=== PATIENT | female | born 1970 | race Two or more races ===

== ENCOUNTER 2020-04-26 16:45 | Emergency (ER) | payer OTHER, SELFPAY ==
[2020-04-26 17:09] VITALS: BP 141/81; PULSE 73; RESP 18; TEMP 37.4; O2SAT 98; BMI 32.9
--- NOTE | 2020-04-26 19:12 | XR_ITS ---
EXAMINATION: XR CHEST CLINICAL INFORMATION: Cough COMPARISON: Chest x-ray 04/30/2019 TECHNIQUE: 2 views of the chest were obtained. FINDINGS: Cardiac silhouette is normal in size. The lungs are well aerated. There is no lobar consolidation. No pleural effusion or pneumothorax. No acute osseous abnormality. IMPRESSION: Stable examination demonstrating no acute pulmonary pathology.
[2020-04-26] MEDS: predniSONE 20 MG TABLET 60 MG PO (19:30)
[2020-04-26] MEDS: Albuterol/Iprat 2.5/0.5MG 3 ML AMPUL.NEB INHALE (19:35)
[2020-04-26 20:42] VITALS: BP 143/77; PULSE 80; RESP 16; TEMP 37.1; O2SAT 100
--- NOTE | 2020-04-26 21:08 | ED_ITS ---
HPI - URI/Sore Throat General Chief Complaint: Upper Respiratory Symptoms Stated Complaint: flu like symptoms, negative covid test Time Seen by Provider: 04/26/20 19:12 Source: patient Mode of arrival: ambulatory Limitations: no limitations History of Present Illness HPI Narrative: Patient presents to ED for 2 weeks of runny nose, coughing, facial pain, and chest pain only when she coughs. Patient denies any chest pain on inspiration. Patient was recently swab this past Saturday for COVID test and was negative. but patient states she swab herself and did not go all the upper nose. Patient wants to get retested for COVID-19. Related Data Home Medications Medication Instructions Recorded Confirmed albuterol sulfate 90 mcg/actuation 2 puff INHALATION Q6H PRN 04/20/20 aerosol inhaler albuterol sulfate 90 mcg/actuation 2 puff INHALATION Q6H PRN 04/20/20 aerosol inhaler ascorbic acid (vitamin C) 500 mg 500 mg PO DAILY 04/20/20 tablet budesonide-formoterol HFA 80 2 puff INHALATION BID 04/20/20 mcg-4.5 mcg/actuation aerosol inhaler cholecalciferol (vitamin D3) 50 50 mcg PO DAILY 04/20/20 mcg (2,000 unit) capsule levothyroxine 137 mcg tablet 137 mcg PO DAILY 04/20/20 montelukast 10 mg tablet 10 mg PO DAILY 04/20/20 Previous Rx's Medication Instructions Recorded dextromethorphan-guaifenesin 10 10 ml PO Q4-6H PRN 15 Days #237 ml 04/20/20 mg-100 mg/5 mL oral syrup azithromycin 250 mg tablet See Rx Instructions PO .COMPLEX #6 04/22/20 tab benzonatate [Tessalon Perles] 100 mg PO TID #15 cap 04/26/20 prednisone 40 mg PO DAILY #10 tab 04/26/20 Allergies Allergy/AdvReac Type Severity Reaction Status Date / Time peanut [PEANUT] Allergy Unknown SWELLING Verified 04/26/20 17:09 Review of Systems Review of Systems: Patient admits to fever, chills, runny nose, facial pain, cough pain, chest pain when she cough, fever, and night sweats. Patient denies any swelling of lower extremities, calf pain, chest pain on inspiration, coughing up blood, headache, dizziness, abdominal pain, diarrhea, nausea, vomiting, rash, weakness, blurry vision, dysuria, or hematuria. Yes all other systems are reviewed and are negative [facility] Past Medical History Medical History (Updated 04/26/20 @ 21:16 by HAILEY Solorio) Arthritis Asthma Fibromyalgia Sinusitis Social History Social History Alcohol intake: never Smoked in Last 30 Days: No Use of substances other than those prescribed or required for medical reasons: No Advance Directives: No Advance Directives Information Provided: No Physical Exam Vital Signs: Vital Signs: Vital Signs Temp Pulse Resp BP Pulse Ox 04/26/20 20:42 98.7 F 80 16 143/77 H 100 04/26/20 17:09 99.3 F 73 18 141/81 H 98 Body Mass Index 32.9 Const: General: cooperative, healthy appearing, comfortable, no acute distress, well developed, alert and awake Orientation/consciousness: oriented to person, oriented to place, oriented to time and patient oriented x3 HENMT: Head: Yes normal to inspection Ears: hearing grossly normal bilaterally General nose exam: Normal external nose present Face and sinus: Yes normal facial exam Mouth: Normal oral and palatal mucosa present Throat: Yes posterior oropharynx normal, Yes tonsils normal and Yes uvula midline Eyes: General: appearance normal, both eyes and all related structures Neck: Neck: Yes normal visual inspection, Yes full ROM, Yes no lymphade nopathy, Yes no meningeal signs, No lymphadenopathy, No positive Brudzinski's sign and No positive Kernig's sign Chest: Chest palpation & inspection: normal inspection of the chest and normal palpation of entire chest wall Resp: Effort & Inspection: normal respiratory effort, able to speak in complete sentences, normal respiratory pattern, no audible wheezes and no cough Auscultation: wheezes expiratory wheezes Cardio: Jugular venous distension: no JVD Heart sounds: S1 normal heart s ound present and S2 normal heart sound present GI: Inspection: Yes normal to inspection, No abdominal wall ecchymosis, No Abdominal wall edema, No distended, No incision and No Abdominal panniculus pres ent Palpation (GI): Soft to palpation, not firm, nontender, no guarding and not rigid : General: No CVA tenderness and Yes no CVA tenderness Back/Spine/Pelvis: Back: no CVA tenderness, No CVA tenderness and No back tenderness Skin: General skin exam: no rashes or lesions noted Neuro: General: oriented to person, oriented to place, oriented to time, patient oriented x3, gait normal, no meningeal signs and CN's II-XI intact bilaterally Cranial nerves: Yes CN's II-XII intact bilaterally Extrem: Other: Lower extremities negative for any swelling, calf tenderness, redness, or pitting edema. General: Yes normal to inspection Psych: Appearance: grossly normal, well kempt and not disheveled Course Course Course Narrative: History physical exam indicate URI. Patient will have chest x-ray done. Lungs with wheezing indicate asthma exacerbation. Reevaluation(s) Reevaluation #1: Patient's x-ray came back normal. Patient wheezing improved. Patient will be discharged with steroids. Patient has albuterol inhaler at home. Patient will be discharged with Tessalon Perles. Patient is swabbed for COVID-19. Patient educated on self-isolation Time: 21:14 MDM - URI/Sore Throat MDM Narrative Medical decision making narrative: asthma exacerbation due to viral syndrome. Patient's vital signs are stable Discharge Plan Discharge Clinical Impression: Upper respiratory infection, Asthma Patient Disposition: Home, Self-Care Instructions: Asthma (ED), Upper Respiratory Infection (ED) Additional Instructions: Return to the ED for coughing up blood, swelling of lower extremities, calf pain, chest pain on inspiration, intractable fever, chills, weakness, or any other concerning symptoms. Prescriptions: New prednisone 20 mg tablet 40 mg PO DAILY Qty: 10 RF: 0 benzonatate [Tessalon Perles] 100 mg capsule 100 mg PO TID Qty: 15 RF: 0 No Action montelukast 10 mg tablet 10 mg PO DAILY RF: 0 levothyroxine 137 mcg tablet 137 mcg PO DAILY RF: 0 cholecalciferol (vitamin D3) 50 mcg (2,000 unit) capsule 50 mcg PO DAILY RF: 0 ascorbic acid (vitamin C) 500 mg tablet 500 mg PO DAILY RF: 0 albuterol sulfate 90 mcg/actuation HFA aerosol inhaler 2 puff inhalation Q6H PRNRF: 0 albuterol sulfate [Ventolin HFA] 90 mcg/actuation HFA aerosol inhaler 2 puff inhalation Q6H PRNRF: 0 budesonide-formoterol 80-4.5 mcg/actuation HFA aerosol inhaler 2 puff inhalation BID RF: 0 dextromethorphan-guaifenesin [Robafen DM Cough-Chest Congest] 10-100 mg/5 mL syrup 10 ml PO Q4-6H PRN (Reason: cough) 15 Days Qty: 237 RF: 0 azithromycin 250 mg tablet See Rx Instructions PO .COMPLEX Qty: 6 RF: 0 Referrals: Justin Morales MD [Primary Care Provider] - 2 days ( URI induced asthma exacerbation. Patient retested for the COVID-19 virus. X-ray negative for pneumonia.) Stand Alone Forms: Work/School Release Interventions: ED Discharge Assessment Last Done: 04/26/20 21:25 Discharge Date/Time: 04/26/20 21:29
--- NOTE | 2020-04-26 21:28 | PC.NURSE ---
PT REQUEST TO BE RETESTED FOR COVID. PT BELEIVES THE TEST SHE TOOK COULD BE FAULTY BECAUSE THEY MADE HER DO IT.
== END 2020-04-26 21:29 | disposition home or self-care (01) ==
PROVIDERS: Physician Assistant; Emergency Provider Emergency Medicine Emergency Medical Services; PCP Internal Medicine
DX: J06.9 Acute upper respiratory infection, unspecified (principal); Z20.828 Contact with and (suspected) exposure to other viral communicable diseases; J45.909 Unspecified asthma, uncomplicated; Z79.899 Other long term (current) drug therapy
CPT/HCPCS: 71046; 87635; 99284

== ENCOUNTER → 2020-05-04 07:32 | Outpatient (REF) | payer OTHER, SELFPAY ==
--- NOTE | 2020-05-04 | NM_ITS ---
EXERCISE MYOCARDIAL PERFUSION STUDY INDICATION: Chest pain TECHNIQUE: The patient was brought in for an exercise perfusion study on 05/04/2020. Patient performed exercise as per Manan protocol and was injected 30 mCi of sestamibi once target heart rate was achieved. Images were obtained using the SPECT gamma camera interlaced with the gating device. Images were obtained in supine position. Resting perfusion study was performed on 05/05/2020. Patient was administered 30 mCi of sestamibi intravenously at rest. Images were then obtained in supine position. Total DLP 82mGy-cm. Images were processed with the software and compared side to side in short axis, horizontal long axis and vertical long axis views. FINDINGS: Raw images were reviewed. The stress perfusion study showed mildly diminished tracer uptake in the distal part of anterolateral wall. With CT attenuation correction, this improves significantly suggestive of soft tissue attenuation artifact. The gated study shows normal LV systolic function with calculated LVEF of 72%. LV cavity is normal in size. The gated study shows normal wall thickening and contraction of segments. Resting study shows mildly diminished tracer uptake along the anterior wall which improves with CT attenuation correction and hence suggesting soft tissue artifact. Gating at rest reveals normal wall motion with ejection fraction at 71%. The findings are consistent with no definite reversible or fixed perfusion defects. NM/NM david perf SPECT rest & str IMPRESSION: 1. Myocardial perfusion imaging study shows likely normal myocardial perfusion. No definitive evidence of any ischemia or infarction. 2. Gated LVEF is > 70%. 3. Transient ischemic dilatation not present. EKG component of the test reported separately.
--- NOTE | 2020-05-04 07:46 | CA_ITS ---
Acquisition Time: 2020-05-04 08:08:34 Total Exercise Time: 00:06:00 Test Indications: Chest Pain Medications: LEVOTHYROXINE MONTELUKEST ALBUTEROL Protocol: VERONIKA Max HR: 146 BPM 85% of Pred: 170 BPM Max BP: 172/087 mmHG Max Work Load: 7.0 METS Exercise nuclear test using veronika protocol total of 6 min. Tolerated well. METS 7.0. Pt has Chest pain around her L rib and center of her chest. She's just getting over a sinus infection. Tested neg for COVID. Chest pressure increased during exercise, resolving in recovery period. EKG with occ PVC's during exercise. No ischemic changes. Nuclear images to follow. Normotensive response to exercise. Test reviewed with Dr. Kaplan. Referred By: Slava Esposito Overread By: Pierre Sesay
[2020-05-04 08:36] LABS: Basophils Percent Auto 0.4 % (0-2); Eosinophils Absolute Auto 0.2 X10*3/uL (0.0-0.4); Eosinophils Percent Auto 2.8 % (0-4); Hematocrit 42.1 % (37-47); Hemoglobin 13.6 g/dl (12.0-16.0); Imm Gran Abs Auto 0.02 X10*3/uL (0.00-0.03); Imm Gran Pct Auto 0.3 % (0.0-0.4); Lymphocytes Percent Auto 26.8 % (20-40); MANUAL DIFF FLAG NO; Mean Corpuscular HGB Conc 32.3 g/dl (31.0-35.0); Mean Corpuscular Hemoglobin 29.3 pg (27.0-33.0); Mean Corpuscular Volume 90.7 fL (80-98); Mean Platelet Volume 10.3 fL (9.4-12.3); Monocytes Absolute Auto 0.7 X10*3/uL (0.1-1.2); Monocytes Percent Auto 9.1 % (2-11); Neutrophils Absolute Auto 4.5 X10*3/uL (2.0-8.3); Neutrophils Percent Auto 60.6 % (45-73); Platelet Count 260 X10*3/uL (160-400); Red Blood Count 4.64 X10*6/uL (4.20-5.50); Red Cell Distribution Width 13.9 % (11.0-16.0); White Blood Count 7.4 X10*3/uL (4.8-10.8)
[2020-05-04 09:04] LABS: Alanine Aminotransferase 13 U/L (0-31); Albumin Level 4.1 g/dL (3.5-5.0); Alkaline Phosphatase 80 U/L (39-117); Anion Gap 10 (12-20); Aspartate Amino Transferase 14 U/L (5-31); Bilirubin Total 0.6 mg/dL (0.0-1.0); Blood Urea Nitrogen 8 mg/dL (9-16); C Reactive Protein 0.35 mg/dL (< or = 0.50); Calcium 9.1 mg/dL (8.4-10.2); Carbon Dioxide 32 mmol/L (22-29); Chloride 101 mmol/L (96-108); Estimated Glomerular Filt Rate > 60; Glucose Random 97 mg/dL (60-115); Potassium 4.4 mmol/l (3.3-5.1); Rheumatoid Factor < 15.0 IU/mL (<15.0); Sodium 139 mmol/L (135-145); Total Protein 7.1 g/dL (6.5-8.0)
[2020-05-04 09:17] LABS: Erythrocyte Sedimentation Rate 9 MM/HR (0-20)
[2020-05-04 09:24] LABS: TSH reflex Free T4 0.42 mIU/mL (0.32-4.0)
[2020-05-04 09:51] LABS: Folate 10.5 ng/mL (> or = 4.0); Vitamin B12 840 pg/mL (200-900)
[2020-05-08 15:06] LABS: Anti Nuclear Antibody Screen NEGATIVE (NEGATIVE)
== END ==
LOC: HO.CARD 07:32
PROVIDERS: Absent Provider Internal Medicine; PCP Internal Medicine; Visit Provider Internal Medicine Cardiovascular Disease
DX: Z01.419 Encounter for gynecological examination (general) (routine) without abnormal findings (principal); R07.89 Other chest pain
CPT/HCPCS: 36415; 78452; 80053; 82607; 82746; 84443; 85025; 85652; 86038; 86039; 86140; 86431; 93017; A9500

== ENCOUNTER 2020-07-27 07:56 | Day surgery (SDC) | payer OTHER, SELFPAY ==
[2020-07-22 08:17] VITALS: BMI 33.9
--- NOTE | 2020-07-26 09:29 | P.CONAN_ITS ---
HPI - Anesthesia Eval Consult details Narrative: 50yo F for Colonoscopy Cardiac cleared @ low risk [facility] Past Medical History Medical History Arthralgia Arthritis Asthma Fibromyalgia Hx of meningitis Moderate mitral regurgitation by prior echocardiogram MVP (mitral valve prolapse) Obesity (BMI 30-39.9) Paresthesia Sinusitis Family History Family History Father Medical history unknown Mother Osteoporosis Arthritis Thyroid disease Maternal Aunt Breast cancer Ovarian cancer Surgical History Surgical History H/O left breast biopsy (~2018) History of breast biopsy (~2015) History of section History of D&C History of esophagogastroduodenoscopy (EGD) History of total abdominal hysterectomy (~11/2014) History of tubal ligation Hx of colonoscopy Hx of tonsillectomy Status post ablation of incompetent vein using laser (~10/2014) Social History Social History Are you a primary long term care administrator to a significant other at home: No Do you presently have visiting nurse or other home services: No Alcohol intake: never Smoking Status: Never smoker Use of substances other than those prescribed or required for medical reasons: No Have you been hit, kicked, punched, or otherwise hurt by someone within the past year? If so, by whom?: No Advance Directives: No Advance Directives Information Provided: No Advance Directives on File: No Recently lost weight without trying: No Sexual orientation: Straight/Heterosexual Gender identity: female Meds Allergies Allergy/AdvReac Type Severity Reaction Status Date / Time peanut [PEANUT] Allergy Severe SWELLING,HI Verified 07/22/20 08:10 VES Home Medications Medication Instructions Recorded Confirmed Type albuterol sulfate 90 mcg/actuation 2 puff INHALATION Q6H PRN 04/20/20 07/22/20 History aerosol inhaler ascorbic acid (vitamin C) 500 mg 500 mg PO DAILY 04/20/20 07/22/20 History tablet budesonide-formoterol HFA 80 2 puff INHALATION BID 04/20/20 07/22/20 History mcg-4.5 mcg/actuation aerosol inhaler cholecalciferol (vitamin D3) 50 50 mcg PO DAILY 04/20/20 07/22/20 History mcg (2,000 unit) capsule sennosides [Senna Lax] 1 - 2 tab PO BEDTIME PRN 07/22/20 07/22/20 History Exam Exam Date and Time: July 26, 2020 0929 Height,Weight and Vital Signs: Height 5 ft 5 in Weight 92.533 kg Narrative Narrative: Stress 04/2020 Exercise nuclear test using veronika protocol total of 6 min. Tolerated well. METS 7.0. Pt has Chest pain around her L rib and center of her chest. She's just getting over a sinus infection. Tested neg for COVID. Chest pressure increased during exercise, resolving in recovery period. EKG with occ PVC's during exercise. No ischemic changes. Nuclear images to follow. Normotensive response to exercise. Test reviewed with Dr. Kaplan. 04/2020 NM david perf SPECT rest & str IMPRESSION: 1. Myocardial perfusion imaging study shows likely normal myocardial perfusion. No definitive evidence of any ischemia or infarction. 2. Gated LVEF is > 70%. 3. Transient ischemic dilatation not present. ECHO Nml LV sys and diast function Mod prolapse of the P2 scallop of the posterior leaflet with at least mod eccentric mitral regurg which could be underestimated Nml RV systolic pressure No pericardial effusion Assessment and Plan Assessment Anesthesia Assessment: Chart Reviewed
[2020-07-27 08:40] VITALS: BP 142/69; PULSE 71; RESP 16; TEMP 36.4; O2SAT 96
--- NOTE | 2020-07-27 08:47 | P.CONAN_ITS ---
[facility] Past Medical History Medical History Arthralgia Arthritis Asthma Fibromyalgia Hx of meningitis Moderate mitral regurgitation by prior echocardiogram MVP (mitral valve prolapse) Obesity (BMI 30-39.9) Paresthesia Sinusitis Family History Family History Father Medical history unknown Mother Osteoporosis Arthritis Thyroid disease Maternal Aunt Breast cancer Ovarian cancer Surgical History Surgical History H/O left breast biopsy (~2018) History of breast biopsy (~2015) History of section History of D&C History of esophagogastroduodenoscopy (EGD) History of total abdominal hysterectomy (~11/2014) History of tubal ligation Hx of colonoscopy Hx of tonsillectomy Status post ablation of incompetent vein using laser (~10/2014) Social History Social History Are you a primary hearing healthcare practitioner to a significant other at home: No Do you presently have visiting nurse or other home services: No Alcohol intake: never Smoking Status: Never smoker Use of substances other than those prescribed or required for medical reasons: No Have you been hit, kicked, punched, or otherwise hurt by someone within the past year? If so, by whom?: No Advance Directives: No Advance Directives Information Provided: No Advance Directives on File: No Recently lost weight without trying: No Sexual orientation: Straight/Heterosexual Gender identity: female Meds Allergies Allergy/AdvReac Type Severity Reaction Status Date / Time peanut [PEANUT] Allergy Severe SWELLING,HI Verified 07/22/20 08:10 VES Home Medications Medication Instructions Recorded Confirmed Type albuterol sulfate 90 mcg/actuation 2 puff INHALATION Q6H PRN 04/20/20 07/22/20 History aerosol inhaler ascorbic acid (vitamin C) 500 mg 500 mg PO DAILY 04/20/20 07/22/20 History tablet budesonide-formoterol HFA 80 2 puff INHALATION BID 04/20/20 07/22/20 History mcg-4.5 mcg/actuation aerosol inhaler cholecalciferol (vitamin D3) 50 50 mcg PO DAILY 04/20/20 07/22/20 History mcg (2,000 unit) capsule sennosides [Senna Lax] 1 - 2 tab PO BEDTIME PRN 07/22/20 07/22/20 History Exam Exam Date and Time: July 27, 2020 0847 Height,Weight and Vital Signs: Height 5 ft 5 in Weight 92.533 kg Last Vital Signs Temp 97.5 F 07/27/20 08:40 Pulse 71 07/27/20 08:40 Resp 16 07/27/20 08:40 BP 142/69 H 07/27/20 08:40 Pulse Ox 96 07/27/20 08:40 Airway Mallampati Class: II TM Dist: >3cm Neck ROM: Full Heart: RRR Lungs: CTA
[2020-07-27] MEDS: Lactated Ringers 1,000 ML 100 ML IVCONT (08:49)
--- NOTE | 2020-07-27 08:49 | PC.NURSE ---
patient stated she was vomiting in bathroom. rogeine at this time. c/o 101/10 headache. usually drinks coffee in the am. states she gets nausea from a previous prpe before. applied ice pack to forehead and lights off.
[2020-07-27] MEDS: ondansetron HCL 4 MG/2 ML VIAL IVPUSH ×2 (08:54→10:27)
--- NOTE | 2020-07-27 08:56 | PC.NURSE ---
medicated for nausea
--- NOTE | 2020-07-27 09:14 | MHC.SHP ---
Pre-Procedural Eval Section B Chief Complaint: Colon Polyp Relevant Family History (Specify if Yes): No Relevant Social History: None Present Medications: see Short Stay Collaborative assessment Medical History: Significant History (Arthralgia Arthritis Asthma Fibromyalgia Hx of meningitis Moderate mitral regurgitation by prior echocardiogram MVP (mitral valve prolapse) Obesity (BMI 30-39.9) Paresthesia Sinusitis) History of Previous Operations: Relevant previous surgery/procedure and date(s) (H/O left breast biopsy (~2018) History of breast biopsy (~2015) History of section History of D&C History of esophagogastroduodenoscopy (EGD) History of total abdominal hysterectomy (~11/2014) History of tubal ligation Hx of colonoscopy Hx of tonsillectomy Status post ablation of incompeten) Allergies: Allergies Allergy/AdvReac Type Severity Reaction Status Date / Time peanut [PEANUT] Allergy Severe SWELLING,HI Verified 07/22/20 08:10 VES Review of Systems Sugical H&P ROS: Negative: Constitution, Cardiovascular, Respiratory, Neurological, Psychiatric, Hem-Onc, Allergic/Immunologic, Gastrointestinal, Genitourinary, Musculoskeletal, Integumentary, Endocrine and Eyes/Ears/Nose/Throat Exam Surgical H&P Exam: Normal: HEENT, Normal: Heart, Normal: Lungs, Normal: Extremities, Normal: Abdomen, Normal: Skin and Normal: Neurological Plan Diagnosis/Plan: Unchanged I have reviewed the history and physical and performed a pertinent physical examination on my patient. No changes have occurred unless specified.
--- NOTE | 2020-07-27 09:23 | P.OP_ITS ---
Operative Note Operative Note Date of Service: 07/27/20 Narrative: Operative Information Procedure Description: Colonoscopy, hx of prior colonoscopy with poor prep and removal of tubular adenoma COLONOSCOPY Instrument: Olympus variable stiffness pediatric scope 190L Colonoscopy Monitoring: Vital signs and clinical assessment, continuous EKG monitoring, Pulse oximetry, Carbon Dioxide monitoring and blood pressure monitoring were done throughout the procedure. Colon withdrawal time was 14 minutes. Procedure: The patient was placed in the left lateral decubitis position and pre-procedure medications were administered. After a digital rectal examination of the ano-rectum, the video colonoscope was inserted into the rectum and advanced through the colon to the cecum/TI. The colonoscope was slowly withdrawn in a retrograde panoramic fashion and the colon mucosa was carefully examined including a retroflexed view of the rectum. Findings and interventions are described below. Procedure Difficulty:easy Findings: Terminal Ileum-normal Cecum:normal Ascending Colon: normal Transverse Colon -normal Descending Colon:normal Sigmoid Colon: normal Rectum: Retroflexion with small internal hemorrhoids, grade I, 8-9 mm sessile polyp in distal rectum removed with cold snare, one clip applied Anorectum - normal Colon preparation: [place] Bowel Preparation Scale Right colon; 3 Transverse colon: 3 Left colon; 3 (0 = Unprepared colon segment with mucosa not seen due to solid stool that cannot be cleared. 1 = Portion of mucosa of the colon segment seen, but other areas of the colon segment not well seen due to staining, residual stool and/or opaque liquid. 2 = Minor amount of residual staining, small fragments of stool and/or opaque liquid, but mucosa of colon segment seen well. 3 = Entire mucosa of colon segment seen well with no residual staining, small f ragments of stool or opaque liquid) Impression and Post Procedure Diagnosis: internal hemorrhoids polyp Plan: High fiber diet leaflet Avoid straining at stool, epsom salts and sitz bath, anusol supps or cream prn Repeat Colonoscopy in 5 years if adenoma, 7-10 yrs if hyperplastic or earlier if clinically indicated Above findings were reviewed with the patient and relevant handouts were provided if indicated.
--- NOTE | 2020-07-27 09:23 | PM.OP ---
Brief Operative Note Date of Service: 07/27/20 Pre-op diagnosis: hx of colon polyp and suboptimal prep Post-op diagnosis: same Procedure: see op note Surgeon: Shad Ruiz MD Anesthesia: MAC Estimated blood loss (mL): 0 Condition: stable Disposition: PACU
[2020-07-27 10:03] VITALS: BP 118/71; PULSE 75; RESP 18; TEMP 36.5; O2SAT 98
[2020-07-27 10:18] VITALS: BP 132/81; PULSE 75; RESP 17; TEMP 36.5; O2SAT 95
[2020-07-27] MEDS: Acetaminophen 325 MG TABLET 650 MG PO (10:29)
--- NOTE | 2020-07-27 11:58 | HO.POSTANES ---
Post Anesthesia Evaluation Post Anesthesia Evaluation Vital Signs: Vital Signs Temp Pulse Resp BP Pulse Ox 07/27/20 10:18 97.7 F 75 17 132/81 95 07/27/20 10:03 97.7 F 75 18 118/71 98 07/27/20 08:40 97.5 F 71 16 142/69 H 96 Anesthesia: Monitored Mental Status: Awake Pain Control: Satisfactory Nausea/Vomiting: None Hydration: Adequate Anesthesia-Related Issues: No Anes. Related Issues
== END 2020-07-27 11:05 | disposition home or self-care (01) ==
PROVIDERS: PCP Internal Medicine; Visit Provider Internal Medicine Gastroenterology
PROC: 0DJD8ZZ Inspection of Lower Intestinal Tract, Via Natural or Artificial Opening Endoscopic (ICD-10-PCS; CPT 45378; principal; 2020-07-27 09:20)
DX: Z12.11 Encounter for screening for malignant neoplasm of colon (principal); Z86.010 Personal history of colon polyps; K62.1 Rectal polyp; K64.0 First degree hemorrhoids; J45.909 Unspecified asthma, uncomplicated; Z91.010 Allergy to peanuts; Z79.899 Other long term (current) drug therapy
CPT/HCPCS: 45385; 88305; J2405

== ENCOUNTER 2020-11-04 11:03 | Outpatient (REF) | payer OTHER, SELFPAY ==
--- NOTE | ~2020-11-04 | XR_ITS ---
EXAMINATION: XR KNEE, RIGHT CLINICAL INFORMATION: Pain COMPARISON: None TECHNIQUE: Four views of the right knee. FINDINGS: Bone alignment is normal. No fracture or dislocation is seen. There is mild arthritis at the medial femoral tibial and patellofemoral joints with small osteophytes. There is no joint effusion. XR/XR knee RT 4V IMPRESSION: Mild arthritis.
== END 2020-11-04 11:04 | disposition home or self-care (01) ==
LOC: HO.HMGCX 11:03
PROVIDERS: PCP Internal Medicine; Visit Provider Hospitalist
DX: M25.561 Pain in right knee (principal)
CPT/HCPCS: 73564

== ENCOUNTER 2020-11-08 13:25 | Outpatient (REF) | payer OTHER, SELFPAY ==
[2020-11-10 14:52] LABS: H Pylori Breath Test NOT DETECTED (NOT DETECTED)
== END 2020-11-08 13:26 | disposition home or self-care (01) ==
LOC: HO.LNP 13:25
PROVIDERS: Visit Provider Internal Medicine Gastroenterology
DX: Z87.19 Personal history of other diseases of the digestive system (principal)
CPT/HCPCS: 83013

== ENCOUNTER → 2020-11-08 13:44 | Outpatient (BNVA) | payer OTHER, SELFPAY | PROVIDERS: PCP Internal Medicine; Referring Provider Internal Medicine; Visit Provider Internal Medicine Gastroenterology | DX: K59.01 Slow transit constipation (principal); M62.89 Other specified disorders of muscle | CPT/HCPCS: 99212 ==

== ENCOUNTER → 2020-11-17 09:43 | Outpatient (BNVA) | payer OTHER, SELFPAY | PROVIDERS: PCP Internal Medicine; Visit Provider Surgery | DX: D24.2 Benign neoplasm of left breast (principal) | CPT/HCPCS: 99212 ==

== ENCOUNTER 2020-11-24 07:17 | Emergency (ER) | payer OTHER, SELFPAY ==
[2020-11-24] VITALS (7 sets, daily range): BP systolic 119–147; BP diastolic 74–94; PULSE 68–82; RESP 14–22; TEMP 36.8–36.9; O2SAT 95–97; BMI 31.6
--- NOTE | ~2020-11-24 | XR_ITS ---
EXAMINATION: XR CHEST CLINICAL INFORMATION: Left-sided chest pain, cough. COMPARISON: Chest 11/24/2020 TECHNIQUE: Frontal view of the chest was obtained. FINDINGS: The lungs are well-expanded and clear. The heart size and pulmonary vascularity is normal. No gross bony abnormality seen. XR/XR chest 1V IMPRESSION: Unremarkable chest exam. No change from 04/26/2020
--- NOTE | 2020-11-24 07:44 | ED.ASTHMA ---
HPI - Asthma General Chief Complaint: Upper Respiratory Symptoms Stated Complaint: SORE THROAT Time Seen by Provider: 11/24/20 07:44 Source: patient Mode of arrival: ambulatory Limitations: no limitations History of Present Illness HPI Narrative: 50-year-old female who presents emergency department for evaluation of chest pain and shortness of breath. Patient states she has been sick for approximately 2 weeks. She states that she feels short of breath at rest and has dyspnea on exertion. She has had a cough which is productive of clear foamy sputum with occasional green sputum. She states that she has also had chest pain. She points to her left anterior chest when asked to localize the pain. The pain is a intermittent, burning sensation which is worse with breathing worse with movement, the pain is 6/10 at its worst. She states that she has had body aches sweats and urinary frequency. The patient does have asthma. She states she has been using her albuterol inhaler and nebulizer more frequently with only minimal relief of her shortness of breath. She states that she works in the [employer] system and has been under lot of stress and she feels very anxious. She also states she is caring for 2 small children at home which is also increased her stress. The patient states that she received the [place] COVID-19 vaccine in September 2020 and October 2020. Related Data Home Medications Medication Instructions Recorded Confirmed albuterol sulfate 90 mcg/actuation 2 puff INHALATION Q6H PRN 04/20/20 11/17/20 aerosol inhaler ascorbic acid (vitamin C) 500 mg 500 mg PO DAILY 04/20/20 11/17/20 tablet cholecalciferol (vitamin D3) 50 50 mcg PO DAILY 04/20/20 11/17/20 mcg (2,000 unit) capsule albuterol sulfate 2.5 mg INHALATION Q6-8H PRN 11/04/20 11/17/20 Previous Rx's Medication Instructions Recorded albuterol sulfate 90 mcg/actuation 2 puff INHALATION Q4-6H PRN #6.7 g 10/13/20 aerosol inhaler montelukast 10 mg tablet 10 mg PO DAILY #30 tab 10/14/20 levothyroxine 137 mcg tablet 137 mcg PO DAILY #30 tab 10/26/20 ibuprofen 600 mg tablet 600 mg PO TID #30 tab 11/04/20 lubiprostone 8 mcg capsule 8 mcg PO BID #60 cap 11/08/20 azithromycin 250 mg tablet See Rx Instructions PO .COMPLEX #6 11/17/20 tab Allergies Allergy/AdvReac Type Severity Reaction Status Date / Time peanut [PEANUT] Allergy Severe SWELLING,HI Verified 11/04/20 10:38 VES Review of Systems Review of Systems: Yes all other systems are reviewed and are negative PMFSH Past Medical History [facility] Narrative: The patient denies tobacco, alcohol and drug use. 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 She is . She has 2 children in the age of 3 that she is caring for at home. Medical History Arthralgia Arthritis Asthma Fibromyalgia Hx of meningitis Moderate mitral regurgitation by prior echocardiogram MVP (mitral valve prolapse) Obesity (BMI 30-39.9) Paresthesia Sinusitis Surgical History H/O left breast biopsy (~2018) History of breast biopsy (~2015) History of section History of D&C History of esophagogastroduodenoscopy (EGD) History of total abdominal hysterectomy (~11/2014) History of tubal ligation Hx of colonoscopy Hx of tonsillectomy Status post ablation of incompetent vein using laser (~10/2014) Family History Family History Father Medical history unknown Mother Osteoporosis Arthritis Thyroid disease Maternal Aunt Breast cancer Ovarian cancer Social History Social History Household Members: Spouse and Children Alcohol intake: never Smoking Status: Never smoker Use of substances other than those prescribed or required for medical reasons: No Advance Directives: Yes Advance Directives Information Provided: No Advance Directives on File: No Patient : No Current occupational status: employed Current occupation: [employer] Sexual orientation: Straight/Heterosexual Gender identity: female Physical Exam Vital Signs: Vital Signs: Last Vital Signs Temp 98.3 F 11/24/20 11:02 Pulse 76 11/24/20 11:02 Resp 19 11/24/20 11:02 BP 119/84 11/24/20 11:02 Pulse Ox 95 11/24/20 11:02 Body Mass Index 31.6 Const: General: cooperative and anxious Orientation/consciousness: oriented to person and oriented to place Limitations: no limitations HENMT: Head: Yes normal to inspection, Yes normocephalic and Yes atraumatic Ears: external ears normal General nose exam: Normal external nose present Face and sinus: Yes normal facial exam Mouth: Normal oral and palatal mucosa present Throat: Yes posterior oropharynx normal Eyes: Periorbital: periorbital findings normal Eyelids: Yes eyelids normal Conjunctivae: conjunctivae normal Sclerae: sclerae normal Corneas: corneas normal Pupils: Equal, round and reactive pupils present Direct Ophthalmoscopy: normal light reflex Neck: Neck: Yes full ROM, Yes no lymphadenopathy, Yes no meningeal signs, Yes trachea midline and Yes supple Chest: Chest palpation & inspection: normal inspection of the chest and normal palpation of entire chest wall Resp: Effort & Inspection: normal respiratory effort and able to speak in complete sentences Auscultation: no crackles, no rales, rhonchi throughout and wheezes scattered wheezes Cardio: Rate: regular rate Rhythm: regular rhythm Heart sounds: S1 normal heart sound present, S2 normal heart sound present and Murmur heart sound present systolic III/ and at the left sternal border GI: Inspection: Yes normal to inspection Palpation (GI): Soft to palpation, nontender, no guarding, not rigid and No hepatosplenomegaly present : General: Yes no CVA tenderness Back/Spine/Pelvis: Back: no CVA tenderness Cervical Spine: normal cervical lordosis Thoracic/Lumbar Spine: thoracic and lumbar spine normal to inspection Skin: Lesions: no lesions Rashes: no rashes Wounds: no wounds Neuro: General: oriented to person, oriented to place and no meningeal signs Cranial nerves: Yes CN's II-XII intact bilaterally and Yes Equal, round and reactive pupils present Cognition (Neuro): normal cognition Motor exam (neuro): 5/5 motor strength present throughout Extrem: General: Yes normal to inspection and Yes full ROM Psych: Appearance: well kempt Mental Status: mental status grossly normal Speech and movement: Normal speech and movement present Affect: normal affect Attitude: cooperative Thought process: Normal thought process present Thought content: Normal thought content present Course Course Course Narrative: 50-year-old female who presents emergency department for evaluation of 2 weeks of shortness of breath, dyspnea on exertion cough and chest pain. The patient has been using her albuterol nebulizer and inhaler with only minimal relief of her symptoms. Vital signs revealed an elevated respiratory rate of revealed hypertension with a blood pressure of 144/94 otherwise unremarkable. Physical examination revealed that she was anxious and she had diffuse wheezing and rhonchi on her lung exam otherwise was unremarkable. I did order a laboratory evaluation, chest x-ray an EKG on the patient. The patient was ordered to get albuterol 5 mg nebulizer and Solu-Medrol 125 mg IV. 1048: Patient's laboratory evaluation was unremarkable except for an detectable troponin of 16.5. Repeat troponin was ordered for 11:15 a.m. chest x-ray revealed no evidence of pneumonia. COVID 19 and influenza testing were negative. Twelve EKG was unremarkable. The patient states that her breathing has improved but she is feeling very anxious. She was ordered to get Ativan 1 mg IV. 1251: Patient's anxiety improved after receiving Ativan. Repeat troponin was 18.9 which did not increased by more than 50% suggesting that her chest pain is not secondary to myocardial injury. The patient will be treated with the Zithromax for possible bacterial bronchitis and prednisone 60 mg once a day for 5 days. She was given verbal and printed instructions and discharged home. [facility] - Asthma Lab Data Result diagrams: 11/24/20 08:14 11/24/20 08:14 Labs: Lab Results 11/24/20 11/24/20 11/24/20 Range/Units 08:14 08:14 08:14 WBC 5.2 (4.8-10.8) X10*3/uL RBC 4.33 (4.20-5.50) X10*6/uL Hgb 12.5 (12.0-16.0) g/dl Hct 39.5 (37-47) % MCV 91.2 (80-98) fL MCH 28.9 (27.0-33.0) pg MCHC 31.6 (31.0-35.0) g/dl RDW 14.1 (11.0-16.0) % Plt Count 219 (160-400) X10*3/uL MPV 10.3 (9.4-12.3) fL Immature Gran % (Auto) 0.2 (0.0-0.4) % Neut % (Auto) 50.7 (45-73) % Lymph % (Auto) 31.4 (20-40) % Preble % (Auto) 10.5 (2-11) % Eos % (Auto) 6.8 H (0-4) % Baso % (Auto) 0.4 (0-2) % Lymph # (Auto) 1.6 (1.2-4.9) X10*3/uL Preble # (Auto) 0.5 (0.1-1.2) X10*3/uL Eos # (Auto) 0.4 (0.0-0.4) X10*3/uL Baso # (Auto) 0.0 (0.0-0.2) X10*3/uL Abs Immat Gran (auto) 0.01 (0.00-0.03) X10*3/uL Absolute Neuts (auto) 2.6 (2.0-8.3) X10*3/uL Absolute Nucleated RBC 0.000 (0.0-0.012) X10*3/uL Nucleated RBC % (auto) 0.0 (0.0-0.2) /100WBC Sodium 142 (135-145) mmol/L Potassium 3.9 (3.3-5.1) mmol/L Chloride 106 (96-108) mmol/L Carbon Dioxide 31 H (22-29) mmol/L Anion Gap 9 L (12-20) BUN 10 (9-16) mg/dL Creatinine 0.68 (0.5-1.4) mg/dL Estim Creat Clear Calc 109.9 Estimated GFR > 60 Random Glucose 90 (60-115) mg/dL Lactic Acid (0.5-2.0) mmol/L Calcium 9.4 (8.4-10.2) mg/dL Total Bilirubin 0.5 (0.0-1.0) mg/dL AST 24 D (5-31) U/L ALT 25 (0-31) U/L Alkaline Phosphatase 66 (39-117) U/L Troponin I High Sens (<3.5-17.0) ng/L Total Protein 6.9 (6.5-8.0) g/dL Albumin 4.1 (3.5-5.0) g/dL Lipase 38 (8-78) U/L Coronavirus (PCR) NEGATIVE (Negative) Influenza Type A (PCR) NEGATIVE (Negative) Influenza Type B (PCR) NEGATIVE (Negative) RSV RNA Qual (PCR) NEGATIVE (Negative) 11/24/20 11/24/20 11/24/20 Range/Units 08:14 08:14 11:08 WBC (4.8-10.8) X10*3/uL RBC (4.20-5.50) X10*6/uL Hgb (12.0-16.0) g/dl Hct (37-47) % MCV (80-98) fL MCH (27.0-33.0) pg MCHC (31.0-35.0) g/dl RDW (11.0-16.0) % Plt Count (160-400) X10*3/uL MPV (9.4-12.3) fL Immature Gran % (Auto) (0.0-0.4) % Neut % (Auto) (45-73) % Lymph % (Auto) (20-40) % Preble % (Auto) (2-11) % Eos % (Auto) (0-4) % Baso % (Auto) (0-2) % Lymph # (Auto) (1.2-4.9) X10*3/uL Preble # (Auto) (0.1-1.2) X10*3/uL Eos # (Auto) (0.0-0.4) X10*3/uL Baso # (Auto) (0.0-0.2) X10*3/uL Abs Immat Gran (auto) (0.00-0.03) X10*3/uL Absolute Neuts (auto) (2.0-8.3) X10*3/uL Absolute Nucleated RBC (0.0-0.012) X10*3/uL Nucleated RBC % (auto) (0.0-0.2) /100WBC Sodium (135-145) mmol/L Potassium (3.3-5.1) mmol/L Chloride (96-108) mmol/L Carbon Dioxide (22-29) mmol/L Anion Gap (12-20) BUN (9-16) mg/dL Creatinine (0.5-1.4) mg/dL Estim Creat Clear Calc Estimated GFR Random Glucose (60-115) mg/dL Lactic Acid 0.7 (0.5-2.0) mmol/L Calcium (8.4-10.2) mg/dL Total Bilirubin (0.0-1.0) mg/dL AST (5-31) U/L ALT (0-31) U/L Alkaline Phosphatase (39-117) U/L Troponin I High Sens 16.5 18.9 H* (<3.5-17.0) ng/L Total Protein (6.5-8.0) g/dL Albumin (3.5-5.0) g/dL Lipase (8-78) U/L Coronavirus (PCR) (Negative) Influenza Type A (PCR) (Negative) Influenza Type B (PCR) (Negative) RSV RNA Qual (PCR) (Negative) ECG Data Attestation: I personally reviewed and interpreted this ECG as follows: Interpretation: 0816: Normal sinus rhythm with a rate of 68, normal NM interval, QRS interval and QTC interval, no ST segment elevation, no ST segment depression, inverted T-wave in V1, no old EKG for comparison, this is a normal EKG. Discharge Plan Discharge Prescriptions: No Action albuterol sulfate 90 mcg/actuation HFA aerosol inhaler 2 puff inhalation Q4-6H PRN (Reason: shortness of breath or wheezing) Qty: 6.7 RF: 0 montelukast 10 mg tablet 10 mg PO DAILY Qty: 30 RF: 2 levothyroxine 137 mcg tablet 137 mcg PO DAILY Qty: 30 RF: 3 azithromycin 250 mg tablet See Rx Instructions PO .COMPLEX Qty: 6 RF: 0 cholecalciferol (vitamin D3) 50 mcg (2,000 unit) capsule 50 mcg PO DAILY RF: 0 ascorbic acid (vitamin C) 500 mg tablet 500 mg PO DAILY RF: 0 albuterol sulfate [Ventolin HFA] 90 mcg/actuation HFA aerosol inhaler 2 puff inhalation Q6H PRN (Reason: Wheezing) RF: 0 albuterol sulfate 2.5 mg /3 mL (0.083 %) solution for nebulization 2.5 mg inhalation Q6-8H PRNRF: 0 ibuprofen 600 mg tablet 600 mg PO TID Qty: 30 RF: 0 lubiprostone [Amitiza] 8 mcg capsule 8 mcg PO BID Qty: 60 RF: 1
--- NOTE | 2020-11-24 07:55 | ECG_ITS ---
Test Reason : CHEST PAIN Blood Pressure : / mmHG Vent. Rate : 068 BPM Atrial Rate : 068 BPM P-R Int : 160 ms QRS Dur : 092 ms QT Int : 396 ms P-R-T Axes : 054 061 041 degrees QTc Int : 421 ms Normal sinus rhythm Normal ECG When compared with ECG of 15-DEC-2018 08:00, No significant change was found Referred By: Se Quarles Electronically Signed By:CHAKA JORDAN MD
[2020-11-24] MEDS: Albuterol Sulfate (0.083%) 2.5 MG/3 ML VIAL.NEB 5 MG INHALE (08:22)
[2020-11-24 08:23] LABS: MANUAL DIFF FLAG NO
[2020-11-24 08:25] LABS: Basophils Percent Auto 0.4 % (0-2); Eosinophils Absolute Auto 0.4 X10*3/uL (0.0-0.4); Eosinophils Percent Auto 6.8 % (0-4); Hematocrit 39.5 % (37-47); Hemoglobin 12.5 g/dl (12.0-16.0); Imm Gran Abs Auto 0.01 X10*3/uL (0.00-0.03); Imm Gran Pct Auto 0.2 % (0.0-0.4); Lymphocytes Absolute Auto 1.6 X10*3/uL (1.2-4.9); Lymphocytes Percent Auto 31.4 % (20-40); Mean Corpuscular HGB Conc 31.6 g/dl (31.0-35.0); Mean Corpuscular Hemoglobin 28.9 pg (27.0-33.0); Mean Corpuscular Volume 91.2 fL (80-98); Mean Platelet Volume 10.3 fL (9.4-12.3); Monocytes Absolute Auto 0.5 X10*3/uL (0.1-1.2); Monocytes Percent Auto 10.5 % (2-11); Neutrophils Absolute Auto 2.6 X10*3/uL (2.0-8.3); Neutrophils Percent Auto 50.7 % (45-73); Platelet Count 219 X10*3/uL (160-400); Red Blood Count 4.33 X10*6/uL (4.20-5.50); Red Cell Distribution Width 14.1 % (11.0-16.0); White Blood Count 5.2 X10*3/uL (4.8-10.8)
[2020-11-24] MEDS: methylPREDNISolone Sod Succ 125 MG/2 ML VIAL IVPUSH (08:35)
[2020-11-24 08:49] LABS: Lactic Acid 0.7 mmol/L (0.5-2.0)
[2020-11-24 08:59] LABS: Troponin-I High Sensitivity 16.5 ng/L (<3.5-17.0)
[2020-11-24 09:08] LABS: Alanine Aminotransferase 25 U/L (0-31); Albumin Level 4.1 g/dL (3.5-5.0); Alkaline Phosphatase 66 U/L (39-117); Anion Gap 9 (12-20); Aspartate Amino Transferase 24 U/L (5-31); Bilirubin Total 0.5 mg/dL (0.0-1.0); Blood Urea Nitrogen 10 mg/dL (9-16); Calcium 9.4 mg/dL (8.4-10.2); Carbon Dioxide 31 mmol/L (22-29); Chloride 106 mmol/L (96-108); Creatinine Clr Calc Pharmacy 109.9; Estimated Glomerular Filt Rate > 60; Glucose Random 90 mg/dL (60-115); Lipase 38 U/L (8-78); Potassium 3.9 mmol/L (3.3-5.1); Sodium 142 mmol/L (135-145); Total Protein 6.9 g/dL (6.5-8.0)
[2020-11-24 09:13] LABS: Influenza A PCR NEGATIVE (Negative); Influenza B PCR NEGATIVE (Negative); Resp Syncy Virus RNA Qual PCR NEGATIVE (Negative); SARS COV2 PCR INHOUSE NEGATIVE (Negative)
--- NOTE | 2020-11-24 11:01 | PC.NURSE ---
lungs - rul slight exp wheezing noted. all other lobes - cta. pt c/o slight anxiety
[2020-11-24] MEDS: LORazepam 2 MG/ML VIAL 1 MG IVPUSH (11:04)
[2020-11-24 12:01] LABS: Troponin-I High Sensitivity 18.9 ng/L (<3.5-17.0)
== END 2020-11-24 13:13 | disposition home or self-care (01) ==
PROVIDERS: Emergency Provider Emergency Medicine Emergency Medical Services; PCP Internal Medicine
DX: J20.8 Acute bronchitis due to other specified organisms (principal); Z20.822 Contact with and (suspected) exposure to COVID-19; J45.909 Unspecified asthma, uncomplicated; F41.9 Anxiety disorder, unspecified; I10 Essential (primary) hypertension; Z79.899 Other long term (current) drug therapy
CPT/HCPCS: 0241U; 36415; 71045; 80053; 83605; 83690; 84484; 85025; 87040; 87147; 87205; 93005; 94640; 96374; 96375; 99284; 99285; J2060; J2930

== ENCOUNTER 2021-01-28 07:38 | Emergency (ER) | payer OTHER, SELFPAY ==
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
[2021-01-28 07:39] VITALS: BP 160/98; PULSE 97; RESP 22; TEMP 36.9; O2SAT 97; BMI 31.9
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
[2021-01-28] MEDS: Acetaminophen 325 MG TABLET 650 MG PO (08:24)
== END 2021-01-28 09:47 | disposition home or self-care (01) ==
PROVIDERS: Emergency Provider Emergency Medicine; PCP Internal Medicine
DX: S39.012A Strain of muscle, fascia and tendon of lower back, initial encounter (principal); V43.62XA Car passenger injured in collision with other type car in traffic accident, initial encounter; Y93.89 Activity, other specified; Y92.414 Local residential or business street as the place of occurrence of the external cause; Y99.9 Unspecified external cause status
CPT/HCPCS: 72100; 99283; 99284

== ENCOUNTER 2021-02-08 13:03 | Emergency (ER) | payer OTHER, SELFPAY ==
--- NOTE | 2021-02-08 | ECG_ITS ---
Test Reason : CP Blood Pressure : / mmHG Vent. Rate : 068 BPM Atrial Rate : 068 BPM P-R Int : 146 ms QRS Dur : 084 ms QT Int : 388 ms P-R-T Axes : 052 052 038 degrees QTc Int : 412 ms Sinus rhythm with occasional Premature ventricular complexes Otherwise normal ECG When compared with ECG of 24-NOV-2020 08:16, Premature ventricular complexes are now Present Referred By: Generic ED Physician Electronically Signed By:Slava Esposito
--- NOTE | ~2021-02-08 | XR_ITS ---
EXAMINATION: XR CHEST CLINICAL INFORMATION: Pneumonia COMPARISON: Previous chest x-ray most recent November 2020 TECHNIQUE: Frontal view of the chest was obtained. FINDINGS: The cardiac silhouette is slightly enlarged but stable. Hilar and mediastinal contours are unremarkable. The lungs are clear. There is no pleural effusion or pneumothorax. Bony structures are unremarkable. XR/XR chest 1V IMPRESSION: Stable slight enlargement of the cardiac silhouette. No evidence of pneumonia.
[2021-02-08 13:16] VITALS: BP 167/99; PULSE 71; RESP 18; TEMP 36.3; O2SAT 97; BMI 33.0
[2021-02-08 15:42] LABS: MANUAL DIFF FLAG NO
[2021-02-08 15:44] LABS: Basophils Percent Auto 0.2 % (0-2); Hematocrit 44.7 % (37-47); Hemoglobin 14.4 g/dl (12.0-16.0); Imm Gran Abs Auto 0.03 X10*3/uL (0.00-0.03); Imm Gran Pct Auto 0.3 % (0.0-0.4); Lymphocytes Absolute Auto 1.3 X10*3/uL (1.2-4.9); Lymphocytes Percent Auto 14.3 % (20-40); Mean Corpuscular HGB Conc 32.2 g/dl (31.0-35.0); Mean Corpuscular Hemoglobin 29.2 pg (27.0-33.0); Mean Corpuscular Volume 90.7 fL (80-98); Mean Platelet Volume 9.9 fL (9.4-12.3); Monocytes Absolute Auto 0.1 X10*3/uL (0.1-1.2); Neutrophils Absolute Auto 7.5 X10*3/uL (2.0-8.3); Neutrophils Percent Auto 84.2 % (45-73); Platelet Count 267 X10*3/uL (160-400); Red Blood Count 4.93 X10*6/uL (4.20-5.50); Red Cell Distribution Width 14.2 % (11.0-16.0); White Blood Count 8.9 X10*3/uL (4.8-10.8)
[2021-02-08 15:45] VITALS: BP 180/99; PULSE 66; RESP 16; O2SAT 98
[2021-02-08 15:47] VITALS: PULSE 73
--- NOTE | 2021-02-08 15:52 | ED.CHESTPAIN ---
HPI - Chest Pain General Chief Complaint: Chest Pain Stated Complaint: chest pain Time Seen by Provider: 02/08/21 15:40 Source: patient Mode of arrival: ambulatory Limitations: no limitations History of Present Illness HPI narrative: Patient presents to ED for epigastric / midsternal chest pain. Patient states this morning at around 09:30 she woke up left arm tingling then started having epigastric midsternal chest pain. Patient denies any nausea vomiting, fever, or chills. Patient denies any slurred speech, facial droop, paralysis of extremities, loss of vision, or dizziness. Patient states she did not take her blood pressure medications this morning. Patient no longer have left arm tingling. MD complaint: chest pain Related Data Home Medications Medication Instructions Recorded Confirmed albuterol sulfate 90 mcg/actuation 2 puff INHALATION Q6H PRN 04/20/20 01/19/21 aerosol inhaler (Ventolin HFA) albuterol sulfate 2.5 mg INHALATION Q6-8H PRN 11/04/20 01/19/21 amoxicillin 500 mg capsule 500 mg PO TID 12/08/20 01/19/21 hydrocodone 7.5 mg-acetaminophen 1 tab PO QID PRN 12/08/20 01/19/21 325 mg tablet ibuprofen 800 mg tablet 800 mg PO Q6H PRN 12/08/20 01/19/21 Previous Rx's Medication Instructions Recorded albuterol sulfate 90 mcg/actuation 2 puff INHALATION Q4-6H PRN #6.7 g 10/13/20 aerosol inhaler lubiprostone 8 mcg capsule 8 mcg PO BID #60 cap 11/08/20 (Amitiza) MASK for NEBULIZER with tubing #1 ea 11/25/20 cetirizine 10 mg tablet 10 mg PO DAILY PRN 90 Days #90 tab 12/08/20 montelukast 10 mg tablet 10 mg PO DAILY #30 tab 01/02/21 levothyroxine 137 mcg tablet 137 mcg PO DAILY #30 tab 01/26/21 cyclobenzaprine 10 mg tablet 10 mg PO TID PRN #10 tab 01/28/21 ibuprofen 400 mg tablet 400 mg PO Q8H PRN #10 tab 01/28/21 azithromycin 250 mg tablet 250 mg PO DAILY 5 Days #6 tab 02/02/21 (Zithromax) prednisone 10 mg tablets in a dose See Rx Instructions PO PER PKG DIR 02/02/21 pack 18 Days #63 ea omeprazole 20 mg capsule,delayed 20 mg PO DAILY 10 Days #10 cap 02/08/21 release Allergies Allergy/AdvReac Type Severity Reaction Status Date / Time peanut [PEANUT] Allergy Severe SWELLING,HI Verified 12/08/20 12:34 VES lisinopril Allergy Cough Verified 02/08/21 18:42 Review of Systems Review of Systems: Yes all other systems are reviewed and are negative Constitutional: Constitutional: Reports as per HPI and Reports no additional constitutional complaints Eyes: Eyes: Reports as per HPI and Reports no additional eye complaints ENT: Reports system reviewed and no additional complaints, except as documented and Reports as per HPI Cardiovascular: Cardiovascular: Reports as per HPI, Reports no additional cardiovascular complaints and Reports chest pain Musculoskeletal: Musculoskeletal: Reports no additional musculoskeletal complaints and Reports as per HPI Comments: left arm tingling Neurologic: Reports system reviewed and no additional complaints, except as documented and Reports as per HPI Psychiatric: Psychiatric: Reports no additional psychiatric complaints and Reports as per HPI PMFSH Past Medical History Medical History Allergic rhinitis Arthralgia Asthma Fibromyalgia Hx of meningitis Hypothyroidism Moderate mitral regurgitation by prior echocardiogram MVP (mitral valve prolapse) Obesity (BMI 30-39.9) Paresthesia Surgical History H/O left breast biopsy (~2018) History of breast biopsy (~2015) History of section History of D&C History of esophagogastroduodenoscopy (EGD) History of total abdominal hysterectomy (~11/2014) History of tubal ligation Hx of colonoscopy Hx of tonsillectomy Status post ablation of incompetent vein using laser (~10/2014) Family History Family History Father Medical history unknown Mother Osteoporosis Arthritis Thyroid disease Maternal Aunt Breast cancer Ovarian cancer Social History Social History Household Members: Spouse and Children Are you a primary technical healthcare consultant to a significant other at home: No Do you presently have visiting nurse or other home services: No Alcohol intake: never Patient Tobacco Use Status: Never used Tobacco Use of substances other than those prescribed or required for medical reasons: No Advance Directives: No Advance Directives Information Provided: Yes Patient : No Current occupational status: employed Current occupation: Paras[employer] Sexual orientation: Straight/Heterosexual Gender identity: female Physical Exam Vital Signs: Vital Signs: Last Vital Signs Temp 97.4 F 02/08/21 13:16 Pulse 66 02/08/21 17:45 Resp 15 02/08/21 17:45 BP 167/92 H 02/08/21 17:45 Pulse Ox 95 02/08/21 17:45 Body Mass Index 33.0 Const: General: cooperative, healthy appearing, comfortable, no acute distress, well developed, alert, awake and Physically active Orientation/consciousness: patient oriented x3 HENMT: Head: Yes normal to inspection, Yes No palpable skull fracture present, Yes normocephalic and Yes atraumatic Eyes: General: appearance normal, both eyes and all related structures Neck: Neck: Yes normal visual inspection, Yes full ROM, Yes no lymphadenopathy, Yes no meningeal signs, Yes trachea midline, Yes supple and No tender Chest: Chest palpation & inspection: normal inspection of the chest and normal palpation of entire chest wall Resp: Effort & Inspection: normal respiratory effort and able to speak in complete sentences Auscultation: clear to auscultation bilaterally Cardio: Jugular venous distension: no JVD Heart sounds: S1 normal heart sound present and S2 normal heart sound present GI: Inspection: Yes normal to inspection and No abdominal wall ecchymosis Palpation (GI): Soft to palpation, not firm, nontender, no guarding and not rigid : General: No CVA tenderness and Yes no CVA tenderness Back/Spine/Pelvis: Back: no CVA tenderness, No CVA tenderness and No back tenderness Skin: General skin exam: no rashes or lesions noted and elasticity normal Neuro: Other: Negative facial droop. Negative for slurred speech. All extremities equal strength 5+. [id number] rapid hand movement intact. Negative Romberg General: patient oriented x3, gait normal, tone normal, no meningeal signs and CN's II-XI intact bilaterally Extrem: Other: Lower extremities negative for any swelling, pitting edema, calf tenderness. General: Yes normal to inspection and Yes full ROM Psych: Appearance: grossly normal, well kempt and not disheveled Course Course Course Narrative: due to aging risk factors patient will have a cardiac evaluation. Reevaluation(s) Reevaluation #1: patient states epigastric midsternal chest discomfort relieved after receiving GI cocktail. Will do 2nd troponin. Not suspecting PE. Denies any pleuritic chest pain, leg swelling, recent long travel, recent surgery, history of blood clots, or any estrogen control use. Ekg negative for STEMI Time: 17:30 Reevaluation #2: First troponin came back 11.6. Will do repeat troponin. Time: 17:45 Reevaluation #3: Troponin negative. Patient states she has a appointment with night order selector for follow-up. Patient does not having a myocardial infarction. Negative for pneumonia. BNP negative for CHF. Covid are negative. Patient has no risk factors for PE. Time: 18:00 MDM - Chest Pain MDM Narrative Medical decision making narrative: Atypical chest pain. GERD Lab Data Result diagrams: 02/08/21 15:37 02/08/21 15:37 Labs: Lab Results 02/08/21 02/08/21 02/08/21 Range/Units 15:37 15:37 15:37 WBC 8.9 (4.8-10.8) X10*3/uL RBC 4.93 (4.20-5.50) X10*6/uL Hgb 14.4 (12.0-16.0) g/dl Hct 44.7 (37-47) % MCV 90.7 (80-98) fL MCH 29.2 (27.0-33.0) pg MCHC 32.2 (31.0-35.0) g/dl RDW 14.2 (11.0-16.0) % Plt Count 267 (160-400) X10*3/uL MPV 9.9 (9.4-12.3) fL Immature Gran % (Auto) 0.3 (0.0-0.4) % Neut % (Auto) 84.2 H (45-73) % Lymph % (Auto) 14.3 L (20-40) % [place] % (Auto) 1.0 L (2-11) % Eos % (Auto) 0.0 (0-4) % Baso % (Auto) 0.2 (0-2) % Lymph # (Auto) 1.3 (1.2-4.9) X10*3/uL [place] # (Auto) 0.1 (0.1-1.2) X10*3/uL Eos # (Auto) 0.0 (0.0-0.4) X10*3/uL Baso # (Auto) 0.0 (0.0-0.2) X10*3/uL Abs Immat Gran (auto) 0.03 (0.00-0.03) X10*3/uL Absolute Neuts (auto) 7.5 (2.0-8.3) X10*3/uL Absolute Nucleated RBC 0.000 (0.0-0.012) X10*3/uL Nucleated RBC % (auto) 0.0 (0.0-0.2) /100WBC PT (9.9-13.0) SEC INR (0.9-1.1) APTT (24.1-38.0) SEC Sodium 141 (135-145) mmol/L Potassium 4.4 (3.3-5.1) mmol/L Chloride 104 (96-108) mmol/L Carbon Dioxide 29 (22-29) mmol/L Anion Gap 12 (12-20) BUN 8 L (9-16) mg/dL Creatinine 0.72 (0.5-1.4) mg/dL Estim Creat Clear Calc 102.4 Estimated GFR > 60 Fasting Glucose 153 H (60-99) mg/dL Calcium 9.7 (8.4-10.2) mg/dL Total Bilirubin 0.5 (0.0-1.0) mg/dL Direct Bilirubin 0.2 (0.0-0.5) mg/dL AST 18 (5-31) U/L ALT 15 (0-31) U/L Alkaline Phosphatase 181 H D (39-117) U/L Troponin I High Sens 11.6 (<3.5-17.0) ng/L B-Natriuretic Peptide 22 (<100) pg/mL Total Protein 7.8 (6.5-8.0) g/dL Albumin 4.5 (3.5-5.0) g/dL Lipase 36 (8-78) U/L COVID-19 (MATTHEW) (Negative) COVID-19 Clin Com 02/08/21 02/08/21 02/08/21 Range/Units 16:24 16:25 18:33 WBC (4.8-10.8) X10*3/uL RBC (4.20-5.50) X10*6/uL Hgb (12.0-16.0) g/dl Hct (37-47) % MCV (80-98) fL MCH (27.0-33.0) pg MCHC (31.0-35.0) g/dl RDW (11.0-16.0) % Plt Count (160-400) X10*3/uL MPV (9.4-12.3) fL Immature Gran % (Auto) (0.0-0.4) % Neut % (Auto) (45-73) % Lymph % (Auto) (20-40) % [place] % (Auto) (2-11) % Eos % (Auto) (0-4) % Baso % (Auto) (0-2) % Lymph # (Auto) (1.2-4.9) X10*3/uL [place] # (Auto) (0.1-1.2) X10*3/uL Eos # (Auto) (0.0-0.4) X10*3/uL Baso # (Auto) (0.0-0.2) X10*3/uL Abs Immat Gran (auto) (0.00-0.03) X10*3/uL Absolute Neuts (auto) (2.0-8.3) X10*3/uL Absolute Nucleated RBC (0.0-0.012) X10*3/uL Nucleated RBC % (auto) (0.0-0.2) /100WBC PT 12.2 (9.9-13.0) SEC INR 1.1 (0.9-1.1) APTT 33.7 (24.1-38.0) SEC Sodium (135-145) mmol/L Potassium (3.3-5.1) mmol/L Chloride (96-108) mmol/L Carbon Dioxide (22-29) mmol/L Anion Gap (12-20) BUN (9-16) mg/dL Creatinine (0.5-1.4) mg/dL Estim Creat Clear Calc Estimated GFR Fasting Glucose (60-99) mg/dL Calcium (8.4-10.2) mg/dL Total Bilirubin (0.0-1.0) mg/dL Direct Bilirubin (0.0-0.5) mg/dL AST (5-31) U/L ALT (0-31) U/L Alkaline Phosphatase (39-117) U/L Troponin I High Sens 10.2 (<3.5-17.0) ng/L B-Natriuretic Peptide (<100) pg/mL Total Protein (6.5-8.0) g/dL Albumin (3.5-5.0) g/dL Lipase (8-78) U/L COVID-19 (MATTHEW) Negative (Negative) COVID-19 Clin Com See Note ECG Data ECG #1: Interpretation: Sinus rhythm with PVCs. Negative STEMI. Ventricular rate 68. Pr interval 148. QRS 84. QTC 412. Negative STEMI Discharge Plan Discharge Clinical Impression: Atypical chest pain, Chest pain due to GERD Patient Disposition: Home, Self-Care Instructions: Chest Pain (ED), Gastroesophageal Reflux Disease (ED) Additional Instructions: Your EKG and blood work came back negative for heart attack. Your COVID swab came back negative. Your blood work came back negative for heart failure. x-ray negative for pneumonia. Please follow-up with your upcoming cardiology appointment. You will also need referral to Gastroenterology. to the ED for any worsening chest pain, abdominal pain, swelling of lower extremities, calf pain, coughing up blood, fever, chills, or any other concerning symptoms. Return please follow-up with PCP Prescriptions: New omeprazole 20 mg capsule,delayed release(DR/EC) 20 mg PO DAILY 10 Days Qty: 10 RF: 0 No Action albuterol sulfate 90 mcg/actuation HFA aerosol inhaler 2 puff inhalation Q4-6H PRN (Reason: shortness of breath or wheezing) Qty: 6.7 RF: 0 montelukast 10 mg tablet 10 mg PO DAILY Qty: 30 RF: 2 levothyroxine 137 mcg tablet 137 mcg PO DAILY Qty: 30 RF: 3 cyclobenzaprine 10 mg tablet 10 mg PO TID PRN (Reason: muscle spasm) Qty: 10 RF: 0 ibuprofen 400 mg tablet 400 mg PO Q8H PRN (Reason: pain) Qty: 10 RF: 0 (DME) MASK for NEBULIZER with tubing See Rx Instructions .Route .MEDSUPPLY Qty: 1 RF: 0 azithromycin [Zithromax] 250 mg tablet 250 mg PO DAILY 5 Days Qty: 6 RF: 0 prednisone 10 mg tablets,dose pack See Rx Instructions PO PER PKG DIR 18 Days Qty: 63 RF: 0 albuterol sulfate [Ventolin HFA] 90 mcg/actuation HFA aerosol inhaler 2 puff inhalation Q6H PRN (Reason: Wheezing) RF: 0 amoxicillin 500 mg capsule 500 mg PO TID RF: 0 ibuprofen 800 mg tablet 800 mg PO Q6H PRNRF: 0 hydrocodone-acetaminophen 7.5-325 mg tablet 1 tab PO QID PRNRF: 0 cetirizine 10 mg tablet 10 mg PO DAILY PRN (Reason: allergy symptoms) 90 Days Qty: 90 RF: 1 albuterol sulfate 2.5 mg /3 mL (0.083 %) solution for nebulization 2.5 mg inhalation Q6-8H PRNRF: 0 lubiprostone [Amitiza] 8 mcg capsule 8 mcg PO BID Qty: 60 RF: 1 Stand Alone Forms: Work/School Release Interventions: ED Discharge Assessment Last Done: 02/08/21 20:06 Discharge Date/Time: 02/08/21 20:08 Print Language: Telugu
[2021-02-08 16:03] LABS: Alanine Aminotransferase 15 U/L (0-31); Albumin Level 4.5 g/dL (3.5-5.0); Alkaline Phosphatase 181 U/L (39-117); Anion Gap 12 (12-20); Aspartate Amino Transferase 18 U/L (5-31); Bilirubin Direct 0.2 mg/dL (0.0-0.5); Bilirubin Total 0.5 mg/dL (0.0-1.0); Blood Urea Nitrogen 8 mg/dL (9-16); Calcium 9.7 mg/dL (8.4-10.2); Carbon Dioxide 29 mmol/L (22-29); Chloride 104 mmol/L (96-108); Creatinine Clr Calc Pharmacy 102.4; Estimated Glomerular Filt Rate > 60; Glucose Fasting 153 mg/dL (60-99); Lipase 36 U/L (8-78); Potassium 4.4 mmol/L (3.3-5.1); Sodium 141 mmol/L (135-145); Total Protein 7.8 g/dL (6.5-8.0)
[2021-02-08 16:07] LABS: Troponin-I High Sensitivity 11.6 ng/L (<3.5-17.0)
[2021-02-08] MEDS: Aspirin Enteric Coated 325 MG TABLET.DR PO (16:07)
[2021-02-08] MEDS: PHENobarb/Hyoscy/Atropine/Scop 10 ML ELIXIR PO (16:08)
[2021-02-08] MEDS: Famotidine/PF 20 MG/2 ML VIAL IVPUSH (16:09)
[2021-02-08] MEDS: Lidocaine HCl Viscous 2 % 15 ML SOLUTION MUCOUS MEM (16:09)
[2021-02-08] MEDS: Magnesium Hydrox/Alum Hydrox 30 ML ORAL.SUSP PO (16:09)
[2021-02-08 16:33] LABS: B Type Natriuretic Peptide 22 pg/mL (<100)
[2021-02-08 16:42] LABS: INTERNATIONAL NORM RATIO 1.1 (0.9-1.1); Prothrombin Time 12.2 SEC (9.9-13.0)
[2021-02-08 16:44] LABS: Partial Thromboplastin Time 33.7 SEC (24.1-38.0)
[2021-02-08 16:49] LABS: COVID-19 Test Negative (Negative)
[2021-02-08 17:45] VITALS: BP 167/92; PULSE 66; RESP 15; O2SAT 95
--- NOTE | 2021-02-08 18:11 | PC.NURSE ---
Patient is resting quietly in bed in no distress. Pt states pain is better and rates it a 5-6/10
[2021-02-08 19:04] LABS: Troponin-I High Sensitivity 10.2 ng/L (<3.5-17.0)
== END 2021-02-08 20:08 | disposition home or self-care (01) ==
PROVIDERS: Physician Assistant; Emergency Provider Emergency Medicine Emergency Medical Services; PCP Internal Medicine
DX: R07.89 Other chest pain (principal); K21.9 Gastro-esophageal reflux disease without esophagitis; Z20.822 Contact with and (suspected) exposure to COVID-19; I10 Essential (primary) hypertension; Z79.899 Other long term (current) drug therapy; E66.9 Obesity, unspecified; Z68.30 Body mass index [BMI] 30.0-30.9, adult
CPT/HCPCS: 36415; 71045; 80048; 80076; 83690; 83880; 84484; 85025; 85610; 85730; 87635; 93005; 96374; 99283; 99285

== ENCOUNTER 2021-02-22 06:04 | Day surgery (SDC) | payer OTHER, SELFPAY ==
--- NOTE | 2021-02-21 11:00 | P.CONAN_ITS ---
Documented by User: Melody Rodriguez NP 02/21/21 11:04 HPI - Anesthesia Eval Consult details Narrative: 50yo F for Left Excision of Shoulder Lipoma Medically cleared at low risk [place] [facility] [place] and negative ED w/u[place] PMFSH Active Problems Active Problems: All Active Problems (Updated 02/20/21 @ 09:19 by Justin Morales MD) GERD without esophagitis (Acute) Acquired hypothyroidism (Acute) Lipoma of left upper extremity (Acute) Asthma exacerbation (Acute) Asthma (Acute) Right knee pain (Acute) Slow transit constipation (Acute) Pelvic floor dysfunction (Acute) Intraductal papilloma of left breast (Acute) Left arm pain (Acute) Asthmatic bronchitis (Acute) Hypothyroidism (Acute) Allergic rhinitis (Acute) Obesity (BMI 30-39.9) (Acute) Paresthesia (Acute) Arthralgia (Acute) Past Medical History Medical History Acquired hypothyroidism Allergic rhinitis Arthralgia Asthma Fibromyalgia GERD without esophagitis HTN (hypertension) Hx of meningitis Hypothyroidism Moderate mitral regurgitation by prior echocardiogram MVP (mitral valve prolapse) Obesity (BMI 30-39.9) Paresthesia Family History Family History Father Medical history unknown Mother Osteoporosis Arthritis Thyroid disease Maternal Aunt Breast cancer Ovarian cancer Surgical History Surgical History H/O left breast biopsy History of breast biopsy History of section History of D&C History of esophagogastroduodenoscopy (EGD) History of total abdominal hysterectomy (~11/2014) History of tubal ligation Hx of colonoscopy Hx of tonsillectomy Status post ablation of incompetent vein using laser (~10/2014) Social History Social History Household Members: Spouse and Children Housing: House Are you a primary resident care manager to a significant other at home: No Do you presently have visiting nurse or other home services: No Alcohol intake: never Patient Tobacco Use Status: Never used Tobacco Second Hand Smoke Exposure: Yes Use of substances other than those prescribed or required for medical reasons: No Are you DNR?: No Advance Directives: No Advance Directives Information Provided: Yes Recently lost weight without trying: No Nutrition Risks: No Nutritional Risk Patient : No Current occupational status: employed Current occupation: [employer] Sexual orientation: Straight/Heterosexual Gender identity: female Meds Allergies Allergy/AdvReac Type Severity Reaction Status Date / Time peanut [PEANUT] Allergy Severe SWELLING,HI Verified 02/20/21 08:55 VES lisinopril Allergy Cough Verified 02/20/21 08:55 Home Medications Medication Instructions Recorded Confirmed Last Taken Type albuterol sulfate 2.5 mg INHALATION Q6-8H PRN 11/04/20 02/20/21 Unknown History Exam Exam Date and Time: February 21, 2021 1100 Pertinent Lab Results Pertinent Lab Results: Laboratory Tests 02/08/21 02/08/21 15:37 15:37 WBC 8.9 Hgb 14.4 Hct 44.7 Plt Count 267 Sodium 141 Potassium 4.4 Chloride 104 Carbon Dioxide 29 BUN 8 L Creatinine 0.72 Narrative Narrative: EKG 02/2021 Vent. Rate : 068 BPM ? ? Atrial Rate : 068 BPM ?? P-R Int : 146 ms? QRS Dur : 084 ms ? ? QT Int : 388 ms ? ? ? P-R-T Axes : 052 052 038 degrees ?? QTc Int : 412 ms ? Sinus rhythm with occasional Premature ventricular complexes Otherwise normal ECG When compared with ECG of 24-NOV-2020 08:16, Premature ventricular complexes are now Present NM david perf SPECT rest & str 04/2020 IMPRESSION: ? 1.? Myocardial perfusion imaging study shows likely normal myocardial perfusion. No definitive evidence of any ischemia or infarction. 2.? Gated LVEF is > 70%. 3. Transient ischemic dilatation not present. ? EKG component of the test with occ PVC's ?during exercise.? No ischemic changes. Assessment and Plan Assessment Anesthesia Assessment: Chart Reviewed Documented by User: Olga Barry MD 02/22/21 07:50 [facility] Past Medical History Medical History Acquired hypothyroidism Allergic rhinitis Arthralgia Asthma Fibromyalgia GERD without esophagitis HTN (hypertension) Hx of meningitis Hypothyroidism Moderate mitral regurgitation by prior echocardiogram MVP (mitral valve prolapse) Obesity (BMI 30-39.9) Paresthesia Family History Family History Father Medical history unknown Mother Osteoporosis Arthritis Thyroid disease Maternal Aunt Breast cancer Ovarian cancer Surgical History Surgical History H/O left breast biopsy History of breast biopsy History of section History of D&C History of esophagogastroduodenoscopy (EGD) History of total abdominal hysterectomy (~11/2014) History of tubal ligation Hx of colonoscopy Hx of tonsillectomy Status post ablation of incompetent vein using laser (~10/2014) History of Problems with Anesthesia: No Social History Social History Household Members: Spouse and Children Housing: House Are you a primary resident care manager to a significant other at home: No Do you presently have visiting nurse or other home services: No Alcohol intake: never Patient Tobacco Use Status: Never used Tobacco Second Hand Smoke Exposure: Yes Use of substances other than those prescribed or required for medical reasons: No Are you DNR?: No Advance Directives: No Advance Directives Information Provided: Yes Recently lost weight without trying: No Nutrition Risks: No Nutritional Risk Patient : No Current occupational status: employed Current occupation: [employer] Sexual orientation: Straight/Heterosexual Gender identity: female Meds Allergies Allergy/AdvReac Type Severity Reaction Status Date / Time peanut [PEANUT] Allergy Severe SWELLING,HI Verified 02/20/21 08:55 VES lisinopril Allergy Cough Verified 02/20/21 08:55 Home Medications Medication Instructions Recorded Confirmed Last Taken Type albuterol sulfate 2.5 mg INHALATION Q6-8H PRN 11/04/20 02/20/21 Unknown History Exam Airway Mallampati Class: II TM Dist: >3cm Neck ROM: Full Loose/Missing/Broken Teeth: No Heart: RRR Lungs: CTA Assessment and Plan Assessment Anesthesia Assessment: Anesthesia Plan Discussed Final Anesthetic Review History of Problems with Anesthesia: No NPO: Yes ASA Class: II Final Preanesthetic Review: Meds/Allgs Chart Reviewed, Consent Obtained/Reviewed and Anes Risks/Benef Reviewed Patient Risk: Low Procedure Risk: Low Anesthetic Plan Anesthetic Plan: GA Disposition: Standard PACU
[2021-02-22] VITALS (8 sets, daily range): BP systolic 125–134; BP diastolic 67–83; PULSE 66–73; RESP 16–18; TEMP 36.1–36.4; O2SAT 92–100; BMI 33.3
[2021-02-22] MEDS: Lactated Ringers 1,000 ML 100 ML IVCONT (06:44)
--- NOTE | 2021-02-22 07:21 | MHC.SHP ---
Pre-Procedural Eval Section A Date of Service: 02/22/21 The patient is an INPATIENT: No Changes since office visit: Yes Patient answered all questions; No Cold of Flu in the past 2 weeks, No New Medical Problems and No Changes in Medication The History & Physical has been completed within 30 days and I have reviewed it.: Yes Section B Chief Complaint: benign lipomatous neoplasm of skin & subcutaneous Allergies: Allergies Allergy/AdvReac Type Severity Reaction Status Date / Time peanut [PEANUT] Allergy Severe SWELLING,HI Verified 02/20/21 08:55 VES lisinopril Allergy Cough Verified 02/20/21 08:55 Plan Diagnosis/Plan: Unchanged I have reviewed the history and physical and performed a pertinent physical examination on my patient. No changes have occurred unless specified.
--- NOTE | 2021-02-22 08:20 | P.OP_ITS ---
Operative Note Operative Note Date of Service: 02/22/21 Narrative: Preoperative diagnosis: Left upper shoulder lipoma recurrent Postoperative diagnosis: Same Procedure: Excision of recurrent lipoma left upper shoulder Surgeon: Everardo Kuhn MD Plasterer Journeyman: none Anesthesia: General LMA Indications for procedure: 50-year-old female with a previous history of a lipoma left upper shoulder previously excised now with a recurrent lipoma over the same location causing discomfort. Patient requested xcision. Lesion measures approximately 4 cm in diameter. Operative findings: 4 cm lipoma left upper shoulder Specimen: Lipoma Estimated blood loss: 2 mL Complications: None Procedure details: Patient was brought to the OR and placed in a supine position. After administering general anesthesia the patient's left shoulder was prepped with ChloraPrep and draped in a sterile fashion. A surgical time- out was called the consent confirmed. Patient received preoperative antibiotics and Venodyne boots were in place. Local anesthesia consisting of Sensorcaine 0.25% with epinephrine was infiltrated around the lipoma. Incision was then made over the previous incision and carried out through subcutaneous tissue. Lipoma was identified within the scar tissue. This was then excised using electrocautery. The lipoma was found to be multi lobulated and firmly attached to the scar tissue. Lesion was completely excisied and sent to pathology. Wounds were irrigated with saline and suctioned dry. Deep subcutaneous tissue and dermis were reapproximated with 3-0 polysorb suture and the skin closed with 4-0 polysorb. Sterile dressings were applied. The patient tolerated the procedure well and was transported to PACU in stable condition.
[2021-02-22] MEDS: ondansetron HCL 4 MG/2 ML VIAL IVPUSH (08:43)
== END 2021-02-22 10:07 | disposition home or self-care (01) ==
PROVIDERS: PCP Internal Medicine; Visit Provider Surgery
PROC: (CPT 23071; principal; 2021-02-22 07:30)
DX: D17.22 Benign lipomatous neoplasm of skin and subcutaneous tissue of left arm (principal); J45.909 Unspecified asthma, uncomplicated; I10 Essential (primary) hypertension; K21.9 Gastro-esophageal reflux disease without esophagitis; E03.9 Hypothyroidism, unspecified; Z79.899 Other long term (current) drug therapy; Z88.8 Allergy status to other drugs, medicaments and biological substances; E66.9 Obesity, unspecified; Z68.32 Body mass index [BMI] 32.0-32.9, adult
CPT/HCPCS: 23071; 88304; J0690; J1100; J2250; J2405; J3010

== ENCOUNTER → 2021-03-03 08:36 | Outpatient (BNVA) | payer OTHER, SELFPAY | PROVIDERS: PCP Internal Medicine; Visit Provider Surgery | DX: Z48.817 Encounter for surgical aftercare following surgery on the skin and subcutaneous tissue (principal); Z87.2 Personal history of diseases of the skin and subcutaneous tissue | CPT/HCPCS: 99212 ==

== ENCOUNTER 2021-04-08 15:05 | Emergency (ER) | payer OTHER, SELFPAY ==
--- NOTE | ~2021-04-08 | CT_ITS ---
EXAMINATION: CT ABDOMEN AND PELVIS WITH CONTRAST CLINICAL INFORMATION: Right lower quadrant pain COMPARISON: 04/13/2019 TECHNIQUE: Multidetector volumetric images were obtained from the superior aspect of the liver through the pubic symphysis following administration 85 mL of Omnipaque 350 intravenous contrast. Sagittal and coronal reformatted images were obtained on the technologist's workstation. Oral contrast: No This CT examination was performed using dose optimization techniques as appropriate, variously including the following: *Automated exposure control *Adjustment of mA and/or kV according to patient size (this includes techniques or standardized protocols for targeted exams where dose is matched to indication/reason for exam; i.e. extremities or head) *Use of iterative reconstruction technique DLP: 646 mGy-cm FINDINGS: LUNG BASES: The visualized lung bases are unremarkable. LIVER, GALLBLADDER, AND BILIARY TREE: The liver is normal in size, shape, and attenuation. No suspicious focal hepatic lesion or biliary ductal dilatation is present. Tiny subcentimeter cyst left and right lobe noted. This is unchanged. The gallbladder is unremarkable with no evidence of radiopaque gallstones, gallbladder wall thickening, or obvious pericholecystic inflammatory changes. PANCREAS: Unremarkable. SPLEEN: Unremarkable. ADRENAL GLANDS: Unremarkable. KIDNEYS AND URETERS: The kidneys are normal in size, shape, and attenuation. No hydronephrosis, hydroureter, or calculi seen. No perinephric stranding. Incidental renal cortical cysts. BLADDER: Unremarkable. GASTROINTESTINAL TRACT: The small and large bowel are notable for very medially pointing cecum which is consistent with the very lax ligamentous attachment of the cecal base. There is no evidence for any cecal bascule obstruction.. The appendix is unremarkable. ABDOMINAL WALL: No significant hernia is appreciated. LYMPH NODES: Normal. VASCULAR: Unremarkable. PELVIC VISCERA: Pelvic organs appear to be surgically absent. OSSEOUS STRUCTURES: Unremarkable. CT/CT abdomen pelvis w con IMPRESSION: Normal appendix. Please note the cecum is very medially directed consistent with very loose ligamentous attachment but there is no evidence for any cecal bascule/volvulus.
--- NOTE | ~2021-04-08 | US_ITS ---
EXAMINATION: US VENOUS ULTRASOUND WITH DOPPLER LOWER EXTREMITY, RIGHT CLINICAL INFORMATION: Lower extremity pain. COMPARISON: Bilateral lower extremity venous ultrasound dated from 04/29/2019. TECHNIQUE: Ultrasound of the deep veins is performed from the hip to the calf with compression sonography and color and pulse Doppler assessment. Spectral analysis with color-flow imaging is performed. FINDINGS: There is normal venous compression and respiratory variation and augmented flow. The visualized common femoral vein, superficial femoral vein, profunda femoral vein, popliteal vein, and the trifurcation region shows no evidence of deep venous thrombosis. There is no significant popliteal fossa cyst. If the patient's symptoms persist, followup ultrasound in 5 days 7 days might be of value to exclude proximal propagation from a non-visualized calf vein. US/US venous duplex LE RT IMPRESSION: No DVT demonstrated in the right lower extremity.
[2021-04-08 15:36] VITALS: BP 112/85; PULSE 75; RESP 18; TEMP 36.8; O2SAT 99; BMI 35.2
[2021-04-08] MEDS: Ibuprofen 600 MG TABLET PO (15:41)
[2021-04-08] MEDS: Ondansetron ODT 4 MG TAB.RAPDIS TRANSLINGU (15:41)
[2021-04-08 17:55] LABS: Appearance Urine HAZY; Color Urine YELLOW; Glucose Urine UA NEG (NEG); Leukocyte Esterase Urine NEG (NEG); Nitrite Urine NEG (NEG); Urine Blood NEG (NEG); Urine Ketones NEG (NEG); Urine Protein NEG (NEG-TRACE)
--- NOTE | 2021-04-08 18:02 | ED.ABDPAIN ---
HPI - Abdominal Pain General Chief Complaint: Abdominal Pain Stated Complaint: leg pain Time Seen by Provider: 04/08/21 18:00 History of Present Illness HPI narrative: Patient is a 50-year-old female presents today with having abdominal pain. The pain is over the right flank area radiating to the right lower quadrant. It is sharp. Patient denies any history of kidney stone. No history of abdominal surgery in the past. No history of gallstone. No coughing or congestion or upper respiratory symptoms. No diaphoresis. The pain is made worse with movement. Patient also complaining of pain rating down to the leg other there is no swelling to the leg. She claims when she took a step that was different, she landed awkwardly. Subsequently had some pain on . This pain is much worse since Saturday. History of asthma. Patient denies any diaphoresis. There is no pain on urination. There is no increased frequency. No history of similar pains in the past. No change in bowel movement. There is mild nausea associated with the symptoms. Patient is immunized. No cough no congestion or upper respiratory symptoms. Related Data Home Medications Medication Instructions Recorded Confirmed albuterol sulfate 2.5 mg INHALATION Q6-8H PRN 11/04/20 02/20/21 Previous Rx's Medication Instructions Recorded albuterol sulfate 90 mcg/actuation 2 puff INHALATION Q4-6H PRN #6.7 g 10/13/20 aerosol inhaler lubiprostone 8 mcg capsule 8 mcg PO BID #60 cap 11/08/20 (Amitiza) MASK for NEBULIZER with tubing #1 ea 11/25/20 cetirizine 10 mg tablet 10 mg PO DAILY PRN 90 Days #90 tab 12/08/20 levothyroxine 137 mcg tablet 137 mcg PO DAILY #30 tab 01/26/21 ibuprofen 400 mg tablet 400 mg PO Q8H PRN #10 tab 01/28/21 montelukast 10 mg tablet 10 mg PO DAILY #30 tab 02/09/21 omeprazole 20 mg capsule,delayed 20 mg PO DAILY 30 Days #30 cap 02/20/21 release oxycodone 5 mg tablet 5 mg PO Q6H PRN #10 tab 02/22/21 ibuprofen 400 mg tablet 400 mg PO Q6H PRN #20 tab 04/08/21 Allergies Allergy/AdvReac Type Severity Reaction Status Date / Time peanut [PEANUT] Allergy Severe SWELLING,HI Verified 02/20/21 08:55 VES lisinopril Allergy Cough Verified 02/20/21 08:55 Review of Systems Review of Systems Positive Flank pain Positive nausea No fever no chills No pain on urination All systems reviewed otherwise negative Physical Exam Vital Signs: Vital Signs: Last Vital Signs Temp 97.9 F 04/08/21 20:05 Pulse 62 04/08/21 20:05 Resp 18 04/08/21 20:05 BP 136/83 04/08/21 20:05 Pulse Ox 95 04/08/21 20:05 Body Mass Index 35.2 Appearance: Alert. Oriented X3. No acute distress. Eyes: Pupils equal, round and reactive to light. ENT: Pharynx normal. Neck: Normal inspection. Neck supple. No lymph nodes noted. No crepitus CVS: Normal heart rate and rhythm. Pulses normal. Normal S1 and S2 Respiratory: No respiratory distress. Breath sounds normal. No Wheezing. No rales Abdomen: Soft and nontender. No rigidity. No distention. good BS x4 Skin: Skin warm and dry. Normal skin color. Normal skin turgor. Extremities: No lower extremity edema. Neurovascular intact to all extremities. No Lacerations. No Rash Neuro: Oriented X 3. No motor deficit. No sensory deficit. Moving all extermities. No slurred speech MDM - Abdominal Pain MDM Narrative Medical decision making narrative: CT scan of the abdomen was negative for any acute evidence of obstruction, abscess, perforation. No kidney stone was noted. No appendicitis noted. Patient's urine showed no signs of infection. A Doppler ultrasound the leg was done. There is no evidence of any DVT. Will discharge patient home. Question sciatica having radiation of pain will have patient take Motrin. Close follow-up on an outpatient basis. In stable condition Differential Diagnosis Differential diagnosis: Likely abdominal pain, aortic dissection, acute appendicitis, bowel perforation, calculus of kidney, constipation, diverticulitis, endometriosis, gastroenteritis, gastritis, mesenteric ischemia and pancreatitis Lab Data Result diagrams: 04/08/21 18:23 04/08/21 18:23 Labs: Lab Results 04/08/21 04/08/21 04/08/21 Range/Units 17:47 18:23 18:23 WBC 8.1 (4.8-10.8) X10*3/uL RBC 4.24 (4.20-5.50) X10*6/uL Hgb 12.7 (12.0-16.0) g/dl Hct 39.3 (37-47) % MCV 92.7 (80-98) fL MCH 30.0 (27.0-33.0) pg MCHC 32.3 (31.0-35.0) g/dl RDW 13.6 (11.0-16.0) % Plt Count 256 (160-400) X10*3/uL MPV 9.9 (9.4-12.3) fL Immature Gran % (Auto) 0.1 (0.0-0.4) % Neut % (Auto) 50.3 (45-73) % Lymph % (Auto) 38.0 (20-40) % [place] % (Auto) 9.0 (2-11) % Eos % (Auto) 2.2 (0-4) % Baso % (Auto) 0.4 (0-2) % Lymph # (Auto) 3.1 (1.2-4.9) X10*3/uL [place] # (Auto) 0.7 (0.1-1.2) X10*3/uL Eos # (Auto) 0.2 (0.0-0.4) X10*3/uL Baso # (Auto) 0.0 (0.0-0.2) X10*3/uL Abs Immat Gran (auto) 0.01 (0.00-0.03) X10*3/uL Absolute Neuts (auto) 4.1 (2.0-8.3) X10*3/uL Absolute Nucleated RBC 0.000 (0.0-0.012) X10*3/uL Nucleated RBC % (auto) 0.0 (0.0-0.2) /100WBC Sodium 144 (135-145) mmol/L Potassium 4.0 (3.3-5.1) mmol/L Chloride 107 (96-108) mmol/L Carbon Dioxide 28 (22-29) mmol/L Anion Gap 13 (12-20) BUN 15 D (9-16) mg/dL Creatinine 0.77 (0.5-1.4) mg/dL Estim Creat Clear Calc 92.1 Estimated GFR > 60 Random Glucose 98 (60-115) mg/dL Calcium 9.7 (8.4-10.2) mg/dL Total Bilirubin 0.3 (0.0-1.0) mg/dL Direct Bilirubin < 0.2 (0.0-0.5) mg/dL AST 21 (5-31) U/L ALT 16 (0-31) U/L Alkaline Phosphatase 103 D (39-117) U/L Total Protein 6.9 (6.5-8.0) g/dL Albumin 4.1 (3.5-5.0) g/dL Lipase 51 (8-78) U/L Urine Color YELLOW Urine Appearance HAZY Urine pH 6.0 (5.0-8.0) Ur Specific Datil 1.020 (1.005-1.025) Urine Protein NEG (NEG-TRACE) MG/DL Urine Glucose (UA) NEG (NEG) MG/DL Urine Ketones NEG (NEG) MG/DL Urine Blood NEG (NEG) Urine Nitrite NEG (NEG) Ur Leukocyte Esterase NEG (NEG) Discharge Plan Discharge Clinical Impression: Abdominal pain, Sciatica Patient Disposition: Home, Self-Care Instructions: Sciatica (ED), Abdominal Pain (ED) Prescriptions: New ibuprofen 400 mg tablet 400 mg PO Q6H PRN (Reason: pain) Qty: 20 RF: 0 No Action albuterol sulfate 90 mcg/actuation HFA aerosol inhaler 2 puff inhalation Q4-6H PRN (Reason: shortness of breath or wheezing) Qty: 6.7 RF: 0 levothyroxine 137 mcg tablet 137 mcg PO DAILY Qty: 30 RF: 3 montelukast 10 mg tablet 10 mg PO DAILY Qty: 30 RF: 2 oxycodone 5 mg tablet 5 mg PO Q6H PRN (Reason: pain) Qty: 10 RF: 0 ibuprofen 400 mg tablet 400 mg PO Q8H PRN (Reason: pain) Qty: 10 RF: 0 (DME) MASK for NEBULIZER with tubing See Rx Instructions .Route .MEDSUPPLY Qty: 1 RF: 0 cetirizine 10 mg tablet 10 mg PO DAILY PRN (Reason: allergy symptoms) 90 Days Qty: 90 RF: 1 albuterol sulfate 2.5 mg /3 mL (0.083 %) solution for nebulization 2.5 mg inhalation Q6-8H PRN (Reason: Wheezing) RF: 0 omeprazole 20 mg capsule,delayed release(DR/EC) 20 mg PO DAILY 30 Days Qty: 30 RF: 3 lubiprostone [Amitiza] 8 mcg capsule 8 mcg PO BID Qty: 60 RF: 1 Referrals: Justin Morales MD [Primary Care Provider] - 2 days [facility] Past Medical History Attestation statement: The following information was validated with the patient. Medical History Acquired hypothyroidism Allergic rhinitis Arthralgia Asthma Fibromyalgia GERD without esophagitis HTN (hypertension) Hx of meningitis Hypothyroidism Moderate mitral regurgitation by prior echocardiogram MVP (mitral valve prolapse) Obesity (BMI 30-39.9) Paresthesia Surgical History H/O left breast biopsy History of breast biopsy History of section History of D&C History of esophagogastroduodenoscopy (EGD) History of total abdominal hysterectomy (~11/2014) History of tubal ligation Hx of colonoscopy Hx of tonsillectomy Status post ablation of incompetent vein using laser (~10/2014) Family History Family History Father Medical history unknown Mother Osteoporosis Arthritis Thyroid disease Maternal Aunt Breast cancer Ovarian cancer Social History Social History Household Members: Spouse and Children Housing: House Are you a primary care management specialist to a significant other at home: No Do you presently have visiting nurse or other home services: No Alcohol intake: never Patient Tobacco Use Status: Never used Tobacco Second Hand Smoke Exposure: Yes Advance Directives: No Advance Directives Information Provided: No Patient : No Current occupational status: employed Current occupation: [employer] Sexual orientation: Straight/Heterosexual Gender identity: Female
[2021-04-08 18:27] LABS: MANUAL DIFF FLAG NO
[2021-04-08] MEDS: HYDROmorphone HCl 0.5 MG/0.5 ML SYRINGE IVPUSH (18:28)
[2021-04-08] MEDS: ondansetron HCL 4 MG/2 ML VIAL IVPUSH (18:28)
[2021-04-08 18:32] LABS: Basophils Percent Auto 0.4 % (0-2); Eosinophils Absolute Auto 0.2 X10*3/uL (0.0-0.4); Eosinophils Percent Auto 2.2 % (0-4); Hematocrit 39.3 % (37-47); Hemoglobin 12.7 g/dl (12.0-16.0); Imm Gran Abs Auto 0.01 X10*3/uL (0.00-0.03); Imm Gran Pct Auto 0.1 % (0.0-0.4); Lymphocytes Absolute Auto 3.1 X10*3/uL (1.2-4.9); Mean Corpuscular HGB Conc 32.3 g/dl (31.0-35.0); Mean Corpuscular Volume 92.7 fL (80-98); Mean Platelet Volume 9.9 fL (9.4-12.3); Monocytes Absolute Auto 0.7 X10*3/uL (0.1-1.2); Neutrophils Absolute Auto 4.1 X10*3/uL (2.0-8.3); Neutrophils Percent Auto 50.3 % (45-73); Platelet Count 256 X10*3/uL (160-400); Red Blood Count 4.24 X10*6/uL (4.20-5.50); Red Cell Distribution Width 13.6 % (11.0-16.0); White Blood Count 8.1 X10*3/uL (4.8-10.8)
[2021-04-08 18:42] LABS: Alanine Aminotransferase 16 U/L (0-31); Albumin Level 4.1 g/dL (3.5-5.0); Alkaline Phosphatase 103 U/L (39-117); Anion Gap 13 (12-20); Aspartate Amino Transferase 21 U/L (5-31); Bilirubin Direct < 0.2 mg/dL (0.0-0.5); Bilirubin Total 0.3 mg/dL (0.0-1.0); Blood Urea Nitrogen 15 mg/dL (9-16); Calcium 9.7 mg/dL (8.4-10.2); Carbon Dioxide 28 mmol/L (22-29); Chloride 107 mmol/L (96-108); Creatinine Clr Calc Pharmacy 92.1; Estimated Glomerular Filt Rate > 60; Glucose Random 98 mg/dL (60-115); Lipase 51 U/L (8-78); Sodium 144 mmol/L (135-145); Total Protein 6.9 g/dL (6.5-8.0)
[2021-04-08] MEDS: iohexoL 350 MG/ML 100 ML INFUS..BTL IV (19:06)
[2021-04-08 20:05] VITALS: BP 136/83; PULSE 62; RESP 18; TEMP 36.6; O2SAT 95
== END 2021-04-08 22:00 | disposition home or self-care (01) ==
PROVIDERS: Emergency Provider Emergency Medicine Emergency Medical Services; PCP Internal Medicine
DX: M54.42 Lumbago with sciatica, left side (principal); M54.41 Lumbago with sciatica, right side; R60.0 Localized edema; R10.31 Right lower quadrant pain; Z79.899 Other long term (current) drug therapy
CPT/HCPCS: 36415; 74177; 80048; 80076; 81003; 83690; 85025; 93971; 96374; 96375; 99284; J1170; J2405; Q9967

== ENCOUNTER 2021-04-26 13:13 | Emergency (ER) | payer OTHER, SELFPAY ==
--- NOTE | ~2021-04-26 | XR_ITS ---
EXAMINATION: XR FOOT, RIGHT CLINICAL INFORMATION: Pain and swelling after injury. COMPARISON: 10/11/2016 TECHNIQUE: AP, lateral, and oblique views of the right foot. FINDINGS: Bones have normal alignment throughout the foot. No evidence of fracture or subluxation. There are very small marginal osteophytes of the great toe MTP joint. Otherwise, the metatarsophalangeal joints are unremarkable. The interphalangeal joints are normal. No radiopaque foreign body. XR/XR foot RT 2V IMPRESSION: * No evidence of fracture or malalignment in the right foot. 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
[2021-04-26 13:37] VITALS: BP 134/87; PULSE 76; RESP 18; TEMP 35.9; O2SAT 98; BMI 32.4
--- NOTE | 2021-04-26 15:11 | ED.LOWEXIN ---
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 dropped on her foot) Place: work Severity: mild Relieving factors: nothing Exacerbating factors: weight bearing, movement and palpation Context: direct blow Associated symptoms: swelling and ambulatory Other symptoms: none Related Data Home Medications Medication Instructions Recorded Confirmed albuterol sulfate 2.5 mg INHALATION Q6-8H PRN 11/04/20 02/20/21 Previous Rx's Medication Instructions Recorded albuterol sulfate 90 mcg/actuation 2 puff INHALATION Q4-6H PRN #6.7 g 10/13/20 aerosol inhaler lubiprostone 8 mcg capsule 8 mcg PO BID #60 cap 11/08/20 (Amitiza) MASK for NEBULIZER with tubing #1 ea 11/25/20 cetirizine 10 mg tablet 10 mg PO DAILY PRN 90 Days #90 tab 12/08/20 ibuprofen 400 mg tablet 400 mg PO Q8H PRN #10 tab 01/28/21 montelukast 10 mg tablet 10 mg PO DAILY #30 tab 02/09/21 omeprazole 20 mg capsule,delayed 20 mg PO DAILY 30 Days #30 cap 02/20/21 release oxycodone 5 mg tablet 5 mg PO Q6H PRN #10 tab 02/22/21 ibuprofen 400 mg tablet 400 mg PO Q6H PRN #20 tab 04/08/21 levothyroxine 137 mcg tablet 137 mcg PO DAILY #30 tab 04/24/21 acetaminophen 300 mg-codeine 30 mg 1 tab PO Q8H PRN #10 tab 04/26/21 tablet ibuprofen 800 mg tablet 800 mg PO Q8H PRN #14 tab 04/26/21 lidocaine HCl 4 % topical cream 1 appl TOPICAL BID PRN #120 g 04/26/21 (Aspercreme (lidocaine HCl)) Allergies Allergy/AdvReac Type Severity Reaction Status Date / Time peanut [PEANUT] Allergy Severe SWELLING,HI Verified 04/26/21 13:37 VES lisinopril Allergy Cough Verified 04/26/21 13:37 Review of Systems Review of Systems: Constitutional : No Weight loss, No Fever, No Chills, No Night Sweats, No Fatigue, No Malaise ENT/Mouth : No Hearing loss, No Ear Pain, No Nasal Congestion, No Sinus Pain, No Hoarseness, No sore throat, No Rhinorrhea, No Swallowing Difficulty Eyes: No Eye Pain, No Swelling, No Redness, No Foreign Body, No Discharge, No Vision Changes Cardiovascular : No Chest Pain, No SOB, No Dyspnea on Exertion, No Orthopnea, No Edema, No Palpitations Respiratory : No Cough, No Sputum, No Wheezing, No Smoke Exposure, No Dyspnea Gastrointestinal : No Nausea, No Vomiting, No Diarrhea, No Constipation, No abdominal Pain, No Hematochezia, No Melena Genitourinary : no irregular bleeding, No Dysuria, No Urinary Frequency, No Hematuria, No Urinary Incontinence, No Urgency, No Flank Pain, No Urinary Flow Changes, No Hesitancy Musculoskeletal : + joint pain, No Myalgias, No Joint Swelling Skin : No Skin Lesions, No rash Neuro : No Weakness, No Numbness, No Paresthesias, No Loss of Consciousness, No Dizziness, No Headache Psych : No Anxiety/Panic, No Depression, No SI/HI/AH/VH, No Social Issues, Heme/Lymph: No Bruising, No Bleeding,No Lymphadenopathy Endocrine : No Polyuria, No Polydipsia, No Temperature Intolerance Yes all other systems are reviewed and are negative [facility] Past Medical History Attestation statement: The following information was validated with the patient. Medical History Acquired hypothyroidism Allergic rhinitis Arthralgia Asthma Fibromyalgia GERD without esophagitis HTN (hypertension) Hx of meningitis Hypothyroidism Moderate mitral regurgitation by prior echocardiogram MVP (mitral valve prolapse) Obesity (BMI 30-39.9) Paresthesia Surgical History H/O left breast biopsy History of breast biopsy History of section History of D&C History of esophagogastroduodenoscopy (EGD) History of total abdominal hysterectomy (~11/2014) History of tubal ligation Hx of colonoscopy Hx of tonsillectomy Status post ablation of incompetent vein using laser (~10/2014) Family History Family History Father Medical history unknown Mother Osteoporosis Arthritis Thyroid disease Maternal Aunt Breast cancer Ovarian cancer Social History Social History Household Members: Spouse and Children Housing: House Are you a primary care connector to a significant other at home: No Do you presently have visiting nurse or other home services: No Alcohol intake: never Patient Tobacco Use Status: Never used Tobacco Second Hand Smoke Exposure: Yes Advance Directives: No Current occupational status: employed Current occupation: [employer] Sexual orientation: Straight/Heterosexual Gender identity: Female Physical Exam Vital Signs: Vital Signs: Last Vital Signs Temp 96.6 F L 04/26/21 13:37 Pulse 76 04/26/21 13:37 Resp 18 04/26/21 13:37 BP 134/87 04/26/21 13:37 Pulse Ox 98 04/26/21 13:37 Body Mass Index 32.4 vital signs have been reviewed as normal and appeared to be correct. Blood pressure normal Heart rate normal. Respiration rate normal. Temperature normal. Oxygen saturation normal. Appearance: Alert. Oriented X3. No acute distress. Head: Normal external exam. Normocephalic. Atraumatic. Eyes: PERRLA. EOMI. Conjunctiva and sclera normal. Eyelids normal. ENT: Pharynx normal. Uvula midline. Moist mucous membranes. Neck: Normal inspection. Neck supple. FROM. CVS: Normal heart rate and rhythm. Respiratory: No respiratory distress. Painless inspiration. Skin: Skin warm and dry. Normal skin color. Normal skin turgor. No rashes/lesions/lacerations noted. Extremities: Patient with tenderness to palpation to right foot at the dorsal mid aspect with mild soft tissue swelling and ecchymosis noted. No obvious deformities are noted. Patient has full range of motion of the right ankle/foot and toe joints. Otherwise all other Extremities exhibit normal range of motion and nontender. Neuro: Oriented X 3. No motor deficit. No sensory deficit. Reflexes normal. Normal steady gait. No focal neuro deficits noted. Vascular: + radial pulses/+ 2 distal pedal pulses/+2 dorsalis pedis b/l. Normal cap refill. No cyanosis noted to upper extremity nails and lower extremity toes nails. Course Course Course Narrative: 50-year-old female presenting to the ED with work-related injury after a student dropped a white board on her right foot since then she has been having pain and soft tissue swelling. X-ray obtained and negative for any acute processes. Will DC home with symptomatic treatment instructions return if any new or worsening symptoms and to follow-up with PCP/Work connection. Patient understands agrees with this plan. MDM - Extremity Injury (Lower) Medical Records Attestation: I reviewed the patient's medical records. Imaging Data Right foot x-ray: Attestation: I personally reviewed and interpreted this imaging study as follows: Radiologist's impression: FINDINGS: Bones have normal alignment throughout the foot. No evidence of fracture or subluxation. There are very small marginal osteophytes of the great toe MTP joint. Otherwise, the metatarsophalangeal joints are unremarkable. The interphalangeal joints are normal. No radiopaque foreign body.? XR/XR foot RT 2V IMPRESSION: *? No evidence of fracture or malalignment in the right foot. *? 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 Discharge Plan Discharge Clinical Impression: Right foot sprain, Work related injury Patient Disposition: Home, Self-Care Instructions: Foot Sprain (ED), Return to Work Instructions (ED) Prescriptions: New acetaminophen-codeine 300-30 mg tablet 1 tab PO Q8H PRN (Reason: pain) Qty: 10 RF: 0 lidocaine HCl [Aspercreme (lidocaine HCl)] 4 % cream 1 appl topical BID PRN (Reason: pain) Qty: 120 RF: 0 ibuprofen 800 mg tablet 800 mg PO Q8H PRN (Reason: pain) Qty: 14 RF: 0 No Action albuterol sulfate 90 mcg/actuation HFA aerosol inhaler 2 puff inhalation Q4-6H PRN (Reason: shortness of breath or wheezing) Qty: 6.7 RF: 0 montelukast 10 mg tablet 10 mg PO DAILY Qty: 30 RF: 2 levothyroxine 137 mcg tablet 137 mcg PO DAILY Qty: 30 RF: 0 oxycodone 5 mg tablet 5 mg PO Q6H PRN (Reason: pain) Qty: 10 RF: 0 ibuprofen 400 mg tablet 400 mg PO Q8H PRN (Reason: pain) Qty: 10 RF: 0 ibuprofen 400 mg tablet 400 mg PO Q6H PRN (Reason: pain) Qty: 20 RF: 0 (DME) MASK for NEBULIZER with tubing See Rx Instructions .Route .MEDSUPPLY Qty: 1 RF: 0 cetirizine 10 mg tablet 10 mg PO DAILY PRN (Reason: allergy symptoms) 90 Days Qty: 90 RF: 1 albuterol sulfate 2.5 mg /3 mL (0.083 %) solution for nebulization 2.5 mg inhalation Q6-8H PRN (Reason: Wheezing) RF: 0 omeprazole 20 mg capsule,delayed release(DR/EC) 20 mg PO DAILY 30 Days Qty: 30 RF: 3 lubiprostone [Amitiza] 8 mcg capsule 8 mcg PO BID Qty: 60 RF: 1 Referrals: Justin Morales MD [Primary Care Provider] - 2 days [facility] [Provider Group] - 2 days Stand Alone Forms: Work/School Release Print Language: Croatian
== END 2021-04-26 15:30 | disposition home or self-care (01) ==
PROVIDERS: Emergency Provider Emergency Medicine Emergency Medical Services; PCP Internal Medicine
DX: S93.601A Unspecified sprain of right foot, initial encounter (principal); W20.8XXA Other cause of strike by thrown, projected or falling object, initial encounter; Y93.89 Activity, other specified; Y92.219 Unspecified school as the place of occurrence of the external cause; Y99.0 Civilian activity done for income or pay
CPT/HCPCS: 73620; 99283; 99284

== ENCOUNTER 2021-08-08 08:24 | Emergency (ER) | payer OTHER, SELFPAY ==
[2021-08-08 08:27] VITALS: BP 150/103; PULSE 75; RESP 18; TEMP 36.4; O2SAT 98; BMI 32.9
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
== END 2021-08-08 10:28 | disposition home or self-care (01) ==
PROVIDERS: Emergency Provider Emergency Medicine Emergency Medical Services; PCP Internal Medicine
DX: S13.4XXA Sprain of ligaments of cervical spine, initial encounter (principal); S46.912A Strain of unspecified muscle, fascia and tendon at shoulder and upper arm level, left arm, initial encounter; S46.911A Strain of unspecified muscle, fascia and tendon at shoulder and upper arm level, right arm, initial encounter; V43.62XA Car passenger injured in collision with other type car in traffic accident, initial encounter; Y93.89 Activity, other specified; Y92.415 Exit ramp or entrance ramp of street or highway as the place of occurrence of the external cause; Y99.9 Unspecified external cause status
CPT/HCPCS: 99283

== ENCOUNTER 2021-08-11 07:20 | Outpatient (REF) | payer OTHER, SELFPAY ==
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
== END 2021-08-11 07:21 | disposition home or self-care (01) ==
LOC: HO.XRAY 07:20
PROVIDERS: PCP Internal Medicine; Visit Provider Internal Medicine
DX: M54.2 Cervicalgia (principal); M54.9 Dorsalgia, unspecified; V89.2XXA Person injured in unspecified motor-vehicle accident, traffic, initial encounter
CPT/HCPCS: 72040; 72070

== ENCOUNTER → 2021-08-30 07:59 | Outpatient (BNVA) | payer OTHER, SELFPAY | PROVIDERS: PCP Internal Medicine; Visit Provider Obstetrics & Gynecology ==

== ENCOUNTER 2021-09-02 09:01 | Outpatient (REF) | payer OTHER, SELFPAY ==
--- NOTE | ~2021-09-02 | MM_ITS ---
EXAMINATION: MM SCREENING DIGITAL BREAST TOMOSYNTHESIS, BILATERAL CLINICAL INFORMATION: Screening. Asymptomatic. Benign left stereotactic biopsy 11/20/2018 (Breast tissue with duct ectasia, columnar cell change, stromal fibrosis, chronic inflammation and calcifications. Small fragment of sclerosed fibroadenoma and intraductal papilloma, papillomatous change. No atypia or carcinoma seen). The lifetime risk of breast cancer based on the Tyrer-Cuzick Model is 6%. COMPARISON: Mammography: 02/26/2020, 05/18/2019, 11/20/2018, 11/10/2018, 10/11/2018, 10/05/2017 TECHNIQUE: Digital breast tomosynthesis is performed in both the craniocaudal and mediolateral oblique views along with computer-aided detection (CAD). Synthesized 2D images are generated from the tomosynthesis. FINDINGS: There are scattered areas of fibroglandular density (ACR BI-RADS breast composition Category b). Parenchymal pattern is similar to prior studies. Some minor fibronodular densities are stable. There is no interval mass or architectural abnormality or abnormal calcifications. Biopsy clip marker again noted central upper outer left breast mid depth. The axilla and skin contours are unremarkable. No significant changes. MM/MM tomosynthesis screening BI IMPRESSION: No mammographic evidence of malignancy. ASSESSMENT: BI-RADS 2: Benign RECOMMENDATION: Routine annual mammography screening. This patient's information was entered into a reminder system with a target due date for their next mammogram.
== END 2021-09-02 09:02 | disposition home or self-care (01) ==
LOC: HO.MAMMO 09:01
PROVIDERS: PCP Internal Medicine; Visit Provider Surgery
DX: Z12.31 Encounter for screening mammogram for malignant neoplasm of breast (principal)
CPT/HCPCS: 77063; 77067

== ENCOUNTER 2021-12-11 11:07 | Outpatient (REF) | payer OTHER, SELFPAY ==
--- NOTE | ~2021-12-11 | XR_ITS ---
EXAMINATION: X-RAY RIGHT KNEE X-RAY LEFT KNEE CLINICAL INFORMATION: Pain. COMPARISON: Radiograph of the right knee dated from 11/04/2020. TECHNIQUE: 3 views of each knee. FINDINGS: No acute fractures or malalignment. Mild joint space narrowing in the medial compartments with marginal osteophytes. No erosions. No chondrocalcinosis. Nonspecific metallic clip in the medial soft tissues of the left knee. No joint effusions. XR/XR knee RT 3V IMPRESSION: No acute fractures or malalignment. Mild degenerative osteoarthritis in both medial compartments, slightly greater on the right side where there are more prominent marginal osteophytes.
--- NOTE | ~2021-12-11 | XR_ITS ---
EXAMINATION: X-RAY RIGHT KNEE X-RAY LEFT KNEE CLINICAL INFORMATION: Pain. COMPARISON: Radiograph of the right knee dated from 11/04/2020. TECHNIQUE: 3 views of each knee. FINDINGS: No acute fractures or malalignment. Mild joint space narrowing in the medial compartments with marginal osteophytes. No erosions. No chondrocalcinosis. Nonspecific metallic clip in the medial soft tissues of the left knee. No joint effusions. XR/XR knee LT 3V IMPRESSION: No acute fractures or malalignment. Mild degenerative osteoarthritis in both medial compartments, slightly greater on the right side where there are more prominent marginal osteophytes.
--- NOTE | ~2021-12-11 | XR_ITS ---
EXAMINATION: XR ABDOMEN WITH DECUBITUS VIEWS CLINICAL INDICATION: Right lower quadrant pain. COMPARISON: CT abdomen/pelvis dated from 04/08/2021. TECHNIQUE: Upright and supine views. FINDINGS: The bowel gas pattern is normal with no evidence of ileus or obstruction. No unusual soft tissue calcifications are noted. The bones are unremarkable. Redemonstration of surgical clips in the left inguinal region. XR/XR abdomen w decubitus IMPRESSION: Nonobstructive bowel gas pattern. No significant abnormality.
[2021-12-11 11:27] LABS: MANUAL DIFF FLAG NO
[2021-12-11 11:46] LABS: Basophils Percent Auto 0.5 % (0-2); Eosinophils Absolute Auto 0.1 X10*3/uL (0.0-0.4); Hemoglobin 13.4 g/dl (12.0-16.0); Imm Gran Abs Auto 0.01 X10*3/uL (0.00-0.03); Imm Gran Pct Auto 0.2 % (0.0-0.4); Lymphocytes Absolute Auto 2.1 X10*3/uL (1.2-4.9); Lymphocytes Percent Auto 34.5 % (20-40); Mean Corpuscular HGB Conc 31.9 g/dl (31.0-35.0); Mean Corpuscular Hemoglobin 28.9 pg (27.0-33.0); Mean Corpuscular Volume 90.5 fL (80.0-98.0); Mean Platelet Volume 10.2 fL (9.4-12.3); Monocytes Absolute Auto 0.5 X10*3/uL (0.1-1.2); Monocytes Percent Auto 8.6 % (2-11); Neutrophils Absolute Auto 3.4 x10*3/uL (2.0-8.3); Neutrophils Percent Auto 55.2 % (45-73); Platelet Count 254 X10*3/uL (160-400); Red Blood Count 4.64 X10*6/uL (4.20-5.50); Red Cell Distribution Width 13.9 % (11.0-16.0); White Blood Count 6.2 X10*3/uL (4.8-10.8)
[2021-12-11 12:20] LABS: Alanine Aminotransferase 17 U/L (0-31); Albumin Level 4.3 g/dL (3.5-5.0); Alkaline Phosphatase 95 U/L (39-117); Anion Gap 12 (12-20); Aspartate Amino Transferase 18 U/L (5-31); Bilirubin Total 0.4 mg/dL (0.0-1.0); Blood Urea Nitrogen 7 mg/dL (9-16); Calcium 9.6 mg/dL (8.4-10.2); Carbon Dioxide 28 mmol/L (22-29); Chloride 106 mmol/L (96-108); Cholesterol 241 mg/dL; Estimated Glomerular Filt Rate > 60; Glucose Fasting 98 mg/dL (60-99); HDL Cholesterol 48 mg/dL; LDL Cholesterol Calculated 159 mg/dl; Sodium 142 mmol/L (135-145); Total Protein 7.5 g/dL (6.5-8.0); Triglycerides 172 mg/dL
[2021-12-11 12:32] LABS: Free T4 (Free Thyroxine) 1.23 ng/dL (0.71-1.85); Thyroid Stimulating Hormone 0.36 uIU/mL (0.32-4.0); Vitamin D 25-OH Total 44.2 ng/mL (>30)
[2021-12-11 12:59] LABS: Appearance Urine CLOUDY; Color Urine YELLOW; Glucose Urine UA NEG (NEG); Leukocyte Esterase Urine NEG (NEG); Nitrite Urine NEG (NEG); PH 6.5 (5.0-8.0); Urine Blood NEG (NEG); Urine Ketones NEG (NEG); Urine Protein NEG (NEG-TRACE)
== END 2021-12-11 11:08 | disposition home or self-care (01) ==
LOC: HO.XRAY 11:07
PROVIDERS: PCP Internal Medicine; Visit Provider Internal Medicine
DX: Z00.00 Encounter for general adult medical examination without abnormal findings (principal); R10.31 Right lower quadrant pain; M25.561 Pain in right knee; M25.562 Pain in left knee; I65.21 Occlusion and stenosis of right carotid artery; E55.9 Vitamin D deficiency, unspecified; E03.9 Hypothyroidism, unspecified
CPT/HCPCS: 36415; 73562; 74021; 80053; 80061; 81003; 82306; 84439; 84443; 85025

== ENCOUNTER 2022-01-02 13:42 | Outpatient (REF) | payer OTHER, SELFPAY ==
--- NOTE | ~2022-01-02 | US_ITS ---
EXAMINATION: US EXTRACRANIAL CAROTID DUPLEX, BILATERAL CLINICAL INFORMATION: Mild right carotid disease COMPARISON: None TECHNIQUE: Real-time ultrasound and Doppler techniques (integrating B-mode 2-D vascular images, Doppler spectral analysis and color-flow Doppler imaging) were utilized to interrogate the extracranial carotid arteries, the vertebral arteries and proximal subclavian arteries bilaterally. The degree of stenosis is determined by criteria similar to NASCET. FINDINGS: Right Side: 1. There is mild atherosclerotic plaque seen in the bifurcation/proximal ICA region. 2. The common carotid artery PSV proximally is 134 cm/s and distally 81 cm/s. 3. The proximal internal carotid artery velocities are 52 cm/s systolic and 22 cm/s diastolic. 4. The proximal external carotid artery PSV is 100 cm/s. 5. The vertebral artery shows antegrade flow. 6. The subclavian artery waveforms are normal. Left Side: 1. There is no significant atherosclerotic plaque seen in the bifurcation/proximal ICA region. 2. The common carotid artery PSV proximally is 121 cm/s and distally 99 cm/s. 3. The proximal internal carotid artery velocities are 81 cm/s systolic and 31 cm/s diastolic. 4. The proximal external carotid artery PSV is 98 cm/s. 5. The vertebral artery shows antegrade flow. 6. The subclavian artery waveforms are normal. US/US carotid duplex BI IMPRESSION: 1. RIGHT: Minimal, non-hemodynamically significant stenosis of the proximal right internal carotid artery corresponding to a 0-49% stenosis by velocity criteria. 2. LEFT: Normal left internal carotid artery without atherosclerotic plaque or hemodynamically significant stenosis.
== END 2022-01-02 13:43 | disposition home or self-care (01) ==
LOC: HO.HMGCX 13:42
PROVIDERS: Visit Provider Internal Medicine
DX: I65.21 Occlusion and stenosis of right carotid artery (principal); R51.9 Headache, unspecified
CPT/HCPCS: 93880

== ENCOUNTER 2022-01-23 09:35 | Outpatient (REF) | payer OTHER, SELFPAY ==
--- NOTE | ~2022-01-23 | FL_ITS ---
EXAMINATION: XR FLUOROSCOPY UPPER GI WITH AIR CLINICAL INFORMATION: Gastroesophageal reflux. COMPARISON: None TECHNIQUE: Air-contrast upper GI examination. FINDINGS: There is normal apposition of the vocal cords while saying E. There is normal elevation of the soft palate while saying candy. Patient swallowed thin and thick barium and half-inch diameter barium tablet without difficulty. No nasopharyngeal reflux or tracheal aspiration was identified. There is some hypomotility present within the esophagus with a minimal amount of gastroesophageal reflux within the distal half of the esophagus without definite esophageal erosive change. The gastroesophageal reflux cleared slowly. There is a small hiatal hernia present. There is some diminished distensibility of the stomach in region of the antrum with there are some thickened folds. I am suspicious there may be an ulceration. There was some delay in gastric emptying. There are some thickened folds seen within the duodenal bulb. No significant abnormality of the duodenal sweep was appreciated. FLUOROSCOPY TIME: 4.1 minutes. DOSE AREA PRODUCT: 24.473 uGy-cm2 (grissom-centimeter squared) FL/FL upper GI w air IMPRESSION: Small hiatal hernia with hypomotility and gastroesophageal reflux within the distal half of the esophagus which clears slowly. No definite esophageal mucosal abnormality appreciated. Some delay in gastric emptying with some diminished distensibility of the antrum with thickened antral folds and question possible ulcer. Endoscopy may be of help in further evaluation.
== END 2022-01-23 09:36 | disposition home or self-care (01) ==
LOC: HO.XRAY 09:35
PROVIDERS: PCP Internal Medicine; Visit Provider Internal Medicine
DX: K21.9 Gastro-esophageal reflux disease without esophagitis (principal)
CPT/HCPCS: 74246

== ENCOUNTER 2022-04-12 | Outpatient (REF) | payer OTHER, SELFPAY ==
--- NOTE | ~2022-04-12 | XR_ITS ---
EXAMINATION: XR KNEE AP STANDING CLINICAL INFORMATION: Pain in knee. COMPARISON: None. TECHNIQUE: AP bilateral standing view of the knees was obtained. FINDINGS: Minimal loss of medial compartment joint space both knees. The lateral compartment joints is preserved. No loose bodies or bony erosive changes seen. There is mild periarticular spurring medial compartment both knees. Soft tissue surgical staple is seen along the proximal medial left tibia from previous intervention. No aggressive lytic or sclerotic process seen. XR/XR knee standing BI IMPRESSION: Mild degenerative changes medial compartment both knees with periarticular spurring.
== END 2022-04-12 00:01 | disposition home or self-care (01) ==
LOC: HO.HOSX
PROVIDERS: Visit Provider Orthopaedic Surgery
DX: M17.0 Bilateral primary osteoarthritis of knee (principal); M81.0 Age-related osteoporosis without current pathological fracture
CPT/HCPCS: 20610; 73565; 99202; J1100

== ENCOUNTER 2022-04-26 07:57 | Outpatient (REF) | payer OTHER, SELFPAY ==
--- NOTE | ~2022-04-26 | MM_ITS ---
EXAMINATION: BONE DENSITOMETRY CLINICAL INDICATION: Other specified disorders of bone density and structure. COMPARISON: None (current study represents initial baseline exam). TECHNIQUE: Using a [employer] DXA System (software version: 13.1) manufactured by [employer], dual-energy x-ray absorptiometry was performed of the lumbar spine and left hip. The images are of good technical quality. Summary results are attached. FINDINGS: AP SPINE L1-L4: BMD 1.095 g/cm2, Z-score -1.1, T-score -0.7, normal. LEFT FEMUR, NECK: BMD 0.874 g/cm2, Z-score -0.9, T-score -1.2, osteopenia. LEFT FEMUR, TOTAL: BMD 0.867 g/cm2, Z-score -1.3, T-score -1.1, osteopenia. IDENTIFIED RISK FACTORS: Osteoporosis. Early menopause, secondary osteoporosis, low calcium intake, hysterectomy, bilateral oophorectomy. HISTORY OF FRACTURE: None listed. MEDICATIONS: Vitamin D. MM/XR DEXA axial skeleton IMPRESSION: 1. DIAGNOSIS: Osteopenia based on the lowest T-score value of -1.2 in the femoral neck applying World Health Organization criteria. 2. 10-YEAR FRACTURE RISK PREDICTION, FRAX: Major osteoporotic fracture (clinical spine, forearm, hip or shoulder) 2.7%. Hip fracture 0.2%. 3. Treatment Recommendations: NOF guidelines recommend consideration for treatment in postmenopausal women and men age 50 and older presenting with the following: -A hip or vertebral (clinical or morphometric) fracture. -T-score less than or equal to -2.5 at the femoral neck or spine after appropriate evaluation to exclude secondary causes. -Low bone mass at the hip or spine and a 10-year fracture probability by FRAX of greater than or equal to 3% for hip fracture or greater than or equal to 20% for major osteoporotic fracture based on the [place] adapted WHO algorithm. 4. Other Recommendations: All treatment decisions require clinical judgment and consideration of individual patient factors, including patient preferences, comorbidities, previous drug use, risk factors not captured in the FRAX model (e.g. frailty, falls, vitamin D deficiency, increased bone turnover, interval significant decline in bone density) and possible under or overestimation of fracture risk by FRAX. Additional medical evaluation for secondary cause of low bone mineral density may be appropriate. FUTURE SCAN RECOMMENDATION: People with diagnosed cases of osteoporosis or at high risk for fracture should have regular bone mineral density tests. For patients eligible for Medicare, routine testing is allowed once every 2 years. The testing frequency can be increased to one year for patients who have rapidly progressing disease, those who are receiving or discontinuing medical therapy to restore bone mass, or have additional risk factors.
== END 2022-04-26 07:58 | disposition home or self-care (01) ==
LOC: HO.MAMMO 07:57
PROVIDERS: PCP Internal Medicine; Visit Provider Orthopaedic Surgery
DX: Z13.820 Encounter for screening for osteoporosis (principal); M85.80 Other specified disorders of bone density and structure, unspecified site; E21.0 Primary hyperparathyroidism; Z78.0 Asymptomatic menopausal state; Z90.710 Acquired absence of both cervix and uterus; Z90.722 Acquired absence of ovaries, bilateral
CPT/HCPCS: 77080

== ENCOUNTER 2022-05-03 13:52 | Outpatient (REF) | payer OTHER, SELFPAY ==
[2022-05-03 14:42] LABS: Influenza A PCR NEGATIVE (Negative); Influenza B PCR NEGATIVE (Negative); Resp Syncy Virus RNA Qual PCR NEGATIVE (Negative); SARS COV2 PCR INHOUSE NEGATIVE (Negative)
== END 2022-05-03 13:53 | disposition home or self-care (01) ==
LOC: HO.LNP 13:52
PROVIDERS: Visit Provider Internal Medicine
DX: Z20.822 Contact with and (suspected) exposure to COVID-19 (principal); R09.89 Other specified symptoms and signs involving the circulatory and respiratory systems
CPT/HCPCS: 0241U

== ENCOUNTER → 2022-05-14 07:58 | Outpatient (BNVA) | payer OTHER, SELFPAY | PROVIDERS: PCP Internal Medicine; Referring Provider Internal Medicine; Visit Provider Internal Medicine | DX: R10.11 Right upper quadrant pain (principal); K59.04 Chronic idiopathic constipation | CPT/HCPCS: 99212 ==

== ENCOUNTER 2022-06-09 07:30 | Outpatient (REF) | payer OTHER, SELFPAY ==
[2022-06-09 09:29] LABS: Alanine Aminotransferase 13 U/L (0-31); Albumin Level 4.1 g/dL (3.5-5.0); Alkaline Phosphatase 81 U/L (39-117); Anion Gap 9 (12-20); Aspartate Amino Transferase 19 U/L (5-31); Bilirubin Total 0.5 mg/dL (0.0-1.0); Blood Urea Nitrogen 13 mg/dL (9-16); Calcium 9.9 mg/dL (8.4-10.2); Carbon Dioxide 30 mmol/L (22-29); Chloride 104 mmol/L (96-108); Cholesterol 216 mg/dL; Estimated Glomerular Filt Rate > 60; Free T4 (Free Thyroxine) 1.14 ng/dL (0.71-1.85); Glucose Fasting 100 mg/dL (60-99); HDL Cholesterol 48 mg/dL; LDL Cholesterol Calculated 149 mg/dl; Potassium 4.4 mmol/L (3.3-5.1); Sodium 139 mmol/L (135-145); Thyroid Stimulating Hormone 0.37 uIU/mL (0.32-4.0); Total Protein 7.1 g/dL (6.5-8.0); Triglycerides 98 mg/dL
== END 2022-06-09 07:31 | disposition home or self-care (01) ==
LOC: HO.LAB 07:30
PROVIDERS: PCP Internal Medicine; Visit Provider Internal Medicine
DX: E03.9 Hypothyroidism, unspecified (principal); E78.00 Pure hypercholesterolemia, unspecified
CPT/HCPCS: 36415; 80053; 80061; 84439; 84443

== ENCOUNTER 2022-06-22 08:12 | Outpatient (REF) | payer OTHER, SELFPAY ==
--- NOTE | ~2022-06-22 | US_ITS ---
EXAMINATION: US ABDOMEN COMPLETE CLINICAL INFORMATION: Right lower quadrant pain. COMPARISON: CT abdomen and pelvis 04/08/2021. TECHNIQUE: Real-time imaging of the abdominal viscera. FINDINGS: PANCREAS: Visualized portions of the pancreas are unremarkable. The pancreatic tail is obscured by bowel gas. ABDOMINAL AORTA: The proximal, mid, and distal segments are normal in caliber. INFERIOR VENA CAVA: Visualized portions are normal. LIVER: Normal. The liver is normal in size. The liver contour is normal. Parenchymal echogenicity is normal. No focal hepatic lesion. There is no intrahepatic biliary duct dilatation seen. GALLBLADDER: Normal. The gallbladder is physiologically distended without evidence of stones, sludge, polyps, wall thickening or pericholecystic fluid. COMMON BILE DUCT: Normal in caliber measuring 0.5 cm in diameter. RIGHT KIDNEY: Normal. No hydronephrosis. No renal calculi or focal parenchymal lesions. The kidney measures 11.7 cm in maximum dimension. LEFT KIDNEY: Normal. No hydronephrosis. No renal calculi or focal parenchymal lesions. The kidney measures 10.1 cm in maximum dimension. SPLEEN: Normal. The spleen measures 8.6 cm in maximum dimension. FREE FLUID: None. US/US abdomen complete IMPRESSION: Portions of the pancreas were obscured by bowel gas limiting evaluation. Otherwise unremarkable abdominal ultrasound.
== END 2022-06-22 08:13 | disposition home or self-care (01) ==
LOC: HO.US 08:12
PROVIDERS: Visit Provider Internal Medicine
DX: R10.31 Right lower quadrant pain (principal); R10.11 Right upper quadrant pain
CPT/HCPCS: 76700

== ENCOUNTER 2022-07-12 14:34 | Outpatient (REF) | payer OTHER, SELFPAY ==
[2022-07-12 15:30] LABS: Influenza A PCR NEGATIVE (Negative); Influenza B PCR NEGATIVE (Negative); Resp Syncy Virus RNA Qual PCR NEGATIVE (Negative); SARS COV2 PCR INHOUSE NEGATIVE (Negative)
== END 2022-07-12 14:35 | disposition home or self-care (01) ==
LOC: HO.LNP 14:34
DX: R50.9 Fever, unspecified (principal); Z20.822 Contact with and (suspected) exposure to COVID-19
CPT/HCPCS: 0241U

== ENCOUNTER → 2022-09-03 08:07 | Outpatient (BNVA) | payer OTHER, SELFPAY | PROVIDERS: Visit Provider Obstetrics & Gynecology | DX: Z13.89 Encounter for screening for other disorder (principal) ==

== ENCOUNTER 2022-09-08 07:58 | Outpatient (REF) | payer OTHER, SELFPAY ==
--- NOTE | ~2022-09-08 | MM_ITS ---
EXAMINATION: MM SCREENING DIGITAL BREAST TOMOSYNTHESIS, BILATERAL CLINICAL INFORMATION: Screening. Asymptomatic. The lifetime risk of breast cancer based on the Tyrer-Cuzick Model is 10%. COMPARISON: Mammography: 09/02/2021, 02/26/2020 TECHNIQUE: Digital breast tomosynthesis is performed in both the craniocaudal and mediolateral oblique views along with computer-aided detection (CAD). Synthesized 2D images are generated from the tomosynthesis. FINDINGS: There are scattered areas of fibroglandular density (ACR BI-RADS breast composition Category b). There are no significant masses, abnormal calcifications, or other abnormalities. Parenchymal pattern is similar to prior studies. There are scattered stable benign fibronodular asymmetries. No developing density or architectural abnormality. There is biopsy clip marker mid central upper outer left breast. The axilla and skin contours are unremarkable. MM/MM tomosynthesis screening BI IMPRESSION: No mammographic evidence of malignancy. ASSESSMENT: BI-RADS 2: Benign RECOMMENDATION: Routine annual mammography screening. This patient's information was entered into a reminder system with a target due date for their next mammogram.
== END 2022-09-08 07:59 | disposition home or self-care (01) ==
LOC: HO.MAMMO 07:58
PROVIDERS: PCP Internal Medicine; Visit Provider Internal Medicine
DX: Z12.31 Encounter for screening mammogram for malignant neoplasm of breast (principal)
CPT/HCPCS: 77063; 77067

== ENCOUNTER 2022-09-24 15:16 | Outpatient (REF) | payer OTHER, SELFPAY ==
[2022-09-24 15:32] LABS: MANUAL DIFF FLAG NO
[2022-09-24 15:42] LABS: Basophils Percent Auto 0.3 % (0-2); Eosinophils Absolute Auto 0.1 X10*3/uL (0.0-0.4); Hematocrit 39.3 % (37.0-47.0); Hemoglobin 12.5 g/dl (12.0-16.0); Imm Gran Abs Auto 0.01 X10*3/uL (0.00-0.03); Imm Gran Pct Auto 0.1 % (0.0-0.4); Lymphocytes Absolute Auto 1.9 X10*3/uL (1.2-4.9); Lymphocytes Percent Auto 27.7 % (20-40); Mean Corpuscular HGB Conc 31.8 g/dl (31.0-35.0); Mean Corpuscular Hemoglobin 28.6 pg (27.0-33.0); Mean Corpuscular Volume 89.9 fL (80.0-98.0); Mean Platelet Volume 10.4 fL (9.4-12.3); Monocytes Absolute Auto 0.6 X10*3/uL (0.1-1.2); Monocytes Percent Auto 8.8 % (2-11); Neutrophils Absolute Auto 4.3 x10*3/uL (2.0-8.3); Neutrophils Percent Auto 62.1 % (45-73); Platelet Count 224 X10*3/uL (160-400); Red Blood Count 4.37 X10*6/uL (4.20-5.50); Red Cell Distribution Width 14.4 % (11.0-16.0)
[2022-09-24 15:51] LABS: Estimated Average Glucose 114 mg/dL; Hemoglobin A1c % 5.6 %
[2022-09-24 16:17] LABS: Influenza A PCR NEGATIVE (Negative); Influenza B PCR NEGATIVE (Negative); Resp Syncy Virus RNA Qual PCR NEGATIVE (Negative); SARS COV2 PCR INHOUSE NEGATIVE (Negative)
[2022-09-24 16:28] LABS: Alanine Aminotransferase 13 U/L (0-31); Alkaline Phosphatase 78 U/L (39-117); Anion Gap 12 (12-20); Aspartate Amino Transferase 18 U/L (5-31); Bilirubin Total 0.4 mg/dL (0.0-1.0); Blood Urea Nitrogen 7 mg/dL (9-16); Calcium 9.6 mg/dL (8.4-10.2); Carbon Dioxide 29 mmol/L (22-29); Chloride 104 mmol/L (96-108); Cholesterol 201 mg/dL; Estimated Glomerular Filt Rate > 60; Glucose Fasting 118 mg/dL (60-99); HDL Cholesterol 45 mg/dL; LDL Cholesterol Calculated 130 mg/dl; Sodium 141 mmol/L (135-145); Total Protein 6.9 g/dL (6.5-8.0); Triglycerides 130 mg/dL
[2022-09-24 16:54] LABS: Free T4 (Free Thyroxine) 1.23 ng/dL (0.71-1.85); Thyroid Stimulating Hormone 0.75 uIU/mL (0.32-4.0)
[2022-09-24 17:06] LABS: Appearance Urine Clear; Color Urine Yellow; Glucose Urine UA Negative (Negative); Leukocyte Esterase Urine Negative (Negative); Nitrite Urine Negative (Negative); PH 5.5 (5.0-9.0); Specific Gravity - Urine 1.015 (1.005-1.025); Urine Blood Negative (Negative); Urine Ketones Negative (Negative); Urine Protein Negative (Neg-Trace)
[2022-09-24 18:47] LABS: Vitamin D 25-OH Total 105.9 ng/mL (>30)
== END 2022-09-24 15:17 | disposition home or self-care (01) ==
LOC: HO.LAB 15:16
PROVIDERS: PCP Internal Medicine; Visit Provider Internal Medicine
DX: E78.00 Pure hypercholesterolemia, unspecified (principal); I10 Essential (primary) hypertension; E03.9 Hypothyroidism, unspecified; J06.9 Acute upper respiratory infection, unspecified; R73.01 Impaired fasting glucose; E55.9 Vitamin D deficiency, unspecified; R30.0 Dysuria
CPT/HCPCS: 0241U; 80053; 80061; 81003; 82306; 83036; 84439; 84443; 85025